=== PATIENT | female | born 1945 | race Caucasian/White ===

== ENCOUNTER 2017-03-17 17:56 | Inpatient (IN) | payer OTHER ==
[~2017-03-17] VITALS: Ht 162.6 cm; Wt 57.1 kg
[~2017-03-17 17:56] MED LIST: ADVAIR HFA 230M12 GM INH; CARDIZEM CD240 MG PO; PRILOSEC 20 MG20 MG PO; TENORMIN25 MG PO
[2017-03-17 17:57] VITALS: BP 167/77
[2017-03-17] MEDS ORDERED: ATENOLOL 50MG T50 M1 PO (20:09)
[2017-03-17 20:10] VITALS: BP 167/77
[2017-03-17] MEDS ORDERED: PROAIR HFA8.5 GM INH (20:10)
[2017-03-17 20:30] VITALS: BP 161/75
[2017-03-17 20:45] VITALS: BP 147/71
[2017-03-18 06:48] LABS: HEMATOCRIT 40.4 % (37.0-47.0); HEMOGLOBIN 13.6 gm/dL (12.0-15.0); MCH 34.9 pg (26.0-34.0); MCHC 33.6 g/dL (28.0-37.0); MCV 103.7 fL (80.0-100.0); RBC 3.89 mil/uL (4.20-5.00); RDW 12.4 % (10.5-14.5); WBC 6.3 thou/uL (4.0-11.0)
[2017-03-18 06:54] LABS: CALCIUM 8.8 mg/dL (8.5-10.1); CREATININE 0.6 mg/dL (0.6-1.0)
[2017-03-18 08:02] VITALS: BP 123/60
[2017-03-18 10:59] VITALS: BP 123/60
[2017-03-18 14:05] LABS: APTT 28.5 Seconds (24.5-32.8); INR 1.1; PROTIME 11.1 Seconds (9.3-11.4)
[2017-03-18 16:07] VITALS: BP 145/71
[2017-03-18 20:05] VITALS: BP 144/72
[2017-03-19 03:22] VITALS: BP 139/79
[2017-03-19 08:00] VITALS: BP 149/73
[2017-03-19 16:00] VITALS: BP 135/66
[2017-03-19 19:45] VITALS: BP 159/76
[2017-03-20 04:03] VITALS: BP 149/66
[2017-03-20 08:36] VITALS: BP 146/69
[2017-03-20] MEDS ORDERED: VALIUM5 MG PO (10:47)
[2017-03-20] MEDS ORDERED: DUONEB 2.5-0.5 M3 ML INH (11:15)
[2017-03-20] MEDS ORDERED: IBUPROFEN 400400 M2 PO (11:16)
== END 2017-03-20 15:25 | DRG 517 ==
LOC: ER 17:56 → EROBS 19:35 → 4N 19:35
PROVIDERS: Nurse Practitioner; Radiology Diagnostic Radiology
DX: M48.56XA Collapsed vertebra, not elsewhere classified, lumbar region, initial encounter for fracture (principal); M81.0 Age-related osteoporosis without current pathological fracture; M19.90 Unspecified osteoarthritis, unspecified site; J45.909 Unspecified asthma, uncomplicated; I10 Essential (primary) hypertension; K21.9 Gastro-esophageal reflux disease without esophagitis; Z82.61 Family history of arthritis; Z82.62 Family history of osteoporosis; Z79.899 Other long term (current) drug therapy
CPT/HCPCS: 10790

== ENCOUNTER → 2017-05-22 | Outpatient (CLI) | payer OTHER ==
[~2017-05-22] MED LIST changes: +ATENOLOL 50MG T50 M1 PO; +DUONEB 2.5-0.5 M3 ML INH; +IBUPROFEN 400400 M2 PO; +PROAIR HFA8.5 GM INH; +VALIUM5 MG PO
== END ==
LOC: RAD 15:17
DX: J18.9 Pneumonia, unspecified organism (principal)

== ENCOUNTER → 2017-05-29 | Outpatient (CLI) | payer OTHER | LOC: NUC 13:03 | DX: M81.0 Age-related osteoporosis without current pathological fracture (principal); Z78.0 Asymptomatic menopausal state ==

== ENCOUNTER 2019-12-28 13:53 | Inpatient (IN) | payer OTHER ==
[~2019-12-28] VITALS: Ht 162.6 cm; Wt 51.9 kg
--- NOTE | ~2019-12-28 | HC ---
[facility] [place] [address] CONSULTATION Name: RAMON RAMACHANDRAN Room #: 450- ADM IN M.R.#: [id number] Admission: 12/28/19 Attend Phys: Nadiya Mccabe Discharge: Date of : 43 Report #: [id number] THIS REPORT FOR: cc: Abisai Gasca,Messi LeyvaM ~ CC: Nadiya Gasca DATE OF SERVICE: 12/30/2019 ADMISSION DIAGNOSIS: Bilateral lower extremity weakness. HISTORY OF PRESENT ILLNESS: The patient is a 74-year-old female who was admitted for bilateral lower extremity weakness x 2 weeks, has progressively worsened. She went to the restroom the other night and her legs gave out causing her to fall to the ground. She normally ambulates with a walker. She also has increased bilateral heel and arch pain, likely due to plantar fasciitis. She has a history of osteoporosis, L5 compression fracture, plantar fasciitis, osteoarthritis, asthma, hypertension, breast cancer status post lumpectomy. She denies dizziness, lightheadedness, chest pain, shortness of breath, fevers, chills, nausea or vomiting. PHYSICAL EXAMINATION: The patient has severe pain with palpation along the plantar fascia aponeurosis bilaterally. The pain extends into the plantar medial calcaneus. Minimal tenderness with compression of the calcaneus bilaterally. The Achilles tendon is intact with minimal tenderness, bilateral. She has ankle equinus with roughly 0 degrees ankle dorsiflexion with her knee straight. She has palpable dorsalis pedis and posterior tibial pulses bilaterally with +1 lower extremity edema. No open lesions or signs of infection. She has a pronated pes planovalgus flat foot type. She has 4/5 strength to her extensor and flexor tendons bilaterally. She can feel light touch to her distal toes bilaterally. IMPRESSION: Plantar fasciitis with gastrocnemius equinus, with pes planovalgus bilateral. PLAN: I recommend physical therapy to include soft tissue mobilization, stretching and strengthening exercises. I did recommend she purchase a Powerstep lugi-hgz-mbalrra foot orthotics that she can place in her athletic shoes. She would benefit from some plantar fascia night splints; however, they would not be covered during her stay in the hospital or rehabilitation center, [address] [address] CONSULTATION Name: RAMON RAMACHANDRAN Room #: 450-P [facility] IN M.R.#: [id number] Admission: 12/28/19 Attend Phys: Nadiya Mccabe Discharge: Date of : 43 Report #: [id number] unless the facility could provide this. I do not recommend steroid injections at this time. By: [id number] Messi Carvajal, VERONICA /nt
--- NOTE | ~2019-12-28 | HC ---
[facility] [place] [address] CONSULTATION Name: RAMON RAMACHANDRAN Room #: 450- ADM IN M.R.#: [id number] Admission: 12/28/19 Attend Phys: Nadiya Mccabe Discharge: Date of : 43 Report #: [id number] THIS REPORT FOR: cc: Abisai Gasca,Kvng Hernandez MD ~ CC: Nadiya Gasca DATE OF SERVICE: 12/29/2019 HISTORY OF PRESENT ILLNESS: The patient is a 74-year-old white female admitted with bilateral lower extremity weakness, legs giving out after a fall. She has weakness more involving the left than the right lower extremity. CT scan showed chronic moderate compression L5 upper level narrowing. She also has complaints of distal lower extremity pain and has a diagnosis of plantar fasciitis. She did not tolerate Neurontin and has now been placed on Lyrica. She is to undergo MRI of the lumbar spine, although she does have a history of some claustrophobia. Note that Spinal Surgery Department also is consulting. PAST MEDICAL HISTORY: Prior medical history includes plantar fasciitis, hypertension, and breast CA. She has had a prior left hip fracture, history of osteoporosis, asthma, hypertension, and GERD. ALLERGIES: NEURONTIN. MEDICATIONS: Please see the full medication listing. SOCIAL HISTORY: She lives in an apartment alone, 5 steps in, groceries are delivered. She utilizes a roller walker, apparently 1 glass of alcohol daily. REVIEW OF SYSTEMS: She did not offer any current complaints of chest pain, shortness of breath or abdominal discomfort. PHYSICAL EXAMINATION: GENERAL: A 74-year-old white female, slender build, in no obvious distress. She is alert. VITAL SIGNS: Last recorded temperature 98, pulse 67, respirations 18, and blood pressure 156/91. HEENT: Appeared to be benign. NEUROLOGIC: Cranial nerves are grossly intact. Facies are symmetric. Functional range of motion of both upper extremities. She does have some decreased range of her shoulders. In her lower extremities, she has some weakness in left hip flexion, I would grade it at a 3+/5. Right lower extremity hip flexion is probably -4 and knee extension is 4-. Bilateral ankle dorsiflexion is 4-. Eversion 4-, appears to have some decreased sensation [address] [address] CONSULTATION Name: MADIERAMONFABIO AKBAR Room #: 450-[facility] IN M.R.#: [id number] Admission: 12/28/19 Attend Phys: Nadiya Mccabe Discharge: Date of : 43 Report #: [id number] toe to proprioception when she notes that her feet feel numb. She was only mildly tender to palpation over the plantar fascia. Tone appeared to be intact. Functionally, she is min assist with toilet transfers and physical therapy and was contact guard 3-4 steps with transfers. ASSESSMENT: A 74-year-old white female with the following problem list: 1. Bilateral lower extremity weakness, noted to have paraparesis. 2. Bilateral decreased distal sensation. She may have a concurrent peripheral neuropathy. She does not have a history of diabetes, however. 3. Acute on chronic plantar fasciitis by history. 4. Compression fracture L5 in the past, status post vertebroplasty. 5. Prior history of a left hip fracture. 6. Asthma. 7. Hypertension. 8. Gastroesophageal reflux. PLAN: MRI of the lumbar spine is ordered. She does have some problems with claustrophobia and we did discuss this. She appears open to some Valium or some medication to help her through that. She certainly may benefit from an acute in-hospital inpatient rehabilitation stay as she further medically stabilizes. At this point, we will be glad to follow along with you regarding her rehab therapy needs. By: 1345 2132 Kvng Rodriguez MD /nt
--- NOTE | ~2019-12-28 | EMS ---
[address] [address] EMS Patient Care Report Name: RAMON RAMACHANDRAN Room #: REG MARANDA Camp#: [id number] Admission: 12/28/19 Attend Phys: Discharge: Date of : 43 Report #: [id number] THIS REPORT FOR: //name// Report Transmitted: 12/28/2019 15:19 EMS Care Summary [facility] MED-ACT Incident [id number] @ 12/28/2019 13:10 Incident Location [address] [place] [address] Patient RAMON RAMACHANDRAN Female, 74 Years 1945 Patient Address [address] [place] [address] Patient History Asthma,Hypertension (HTN), Patient Allergies Gabapentin, Patient Medications Prilosec, Cardizem, Advair, Atenolol, Proair, Chief Complaint "My legs are swollen" Disposition Transported No Lights/[place] Reason Falls Transported To [facility] Narrative Medic 1134 responds code 3 to report of sick patient. 1134 arrives to find one patient lying supine in her bed in a well-kept apartment. Patient reports she [facility] [address] [place] [address] EMS Patient Care Report Name: RAMON RAMACHANDRAN Room #: REG MARANDA Camp#: [id number] Admission: 12/28/19 Attend Phys: Discharge: Date of : 43 Report #: [id number] has experienced increasing edema in her bilateral lower extremity???s over the past two days. Patient denies chest pain shortness of breath, palpitations, or other signs of an acute cardiac event. Patient states that her asthma has been increasingly troublesome over the past several months. Patient states the swelling in her lower extremities has resulted in a loss of mobility, so much so that she experienced a ground-level fall yesterday evening. Patient denies trauma or use of blood thinners. Patient???s betdfi-cs-hbd arrived at her residence this afternoon to check on her, and when she noticed the lack of mobility, she activates EMS response. Patient agrees to assessment and transport, asking that she be transported to [facility]. Patient denies use of diuretics, but does confirm history of hypertension. Patient denies sacral edema. Patient reports she has compression hose which she has been instructed to wear. Patient denies complaint outside of that listed above. Patient treatment and transfer of care are unremarkable. 1134 clears and returns to service. Initial Vitals @13:33P: 78,SC Suspected: false @13:42P: 90,R: 16,BP: 135/91,Pain: 0/10,GCS: 15,SpO2: 94,Revised Trauma: 12, @13:35P: 79,R: 16,BP: 161/84,Pain: 0/10,GCS: 15,SpO2: 95,Revised Trauma: 12, @13:19P: 86,R: 16,BP: 163/82,Pain: 0/10,GCS: 15,SpO2: 95,Revised Trauma: 12, Assessments @13:20MENTAL:No Abnormalities,SKIN:No Abnormalities,HEENT:LUNG SOUNDS:ABDOMEN:PELVIS//GI:EXTREMITIES:Left Leg: Edema,Right Leg: Edema,Left Arm: No Abnormalities,Right Arm: No Abnormalities,PULSE:NEURO: Impression Extremity Pain Procedures @13:3312-Lead ECG Timeline 13:07,Call Received 13:07,Psap Call 13:10,Dispatched 13:11,En Route 13:17,On Scene 13:18,At Patient 13:19,BP: 163/82 M,PULSE: 86,RR: 16 R,SPO2: 95 Ox,ETCO2: ,BG: ,PAIN: 0,GCS: 15, 13:33,12-Lead ECG, 13:33,BP: / M,PULSE: 78,RR: R,SPO2: Ox,ETCO2: ,BG: ,PAIN: ,GCS: , 13:35,BP: 161/84 M,PULSE: 79,RR: 16 R,SPO2: 95 Ox,ETCO2: ,BG: ,PAIN: 0,GCS: 15, 13:35,Depart Scene 13:42,BP: 135/91 M,PULSE: 90,RR: 16 R,SPO2: 94 Ox,ETCO2: ,BG: ,PAIN: 0,GCS: 15, [facility] [address] [place] [address] EMS Patient Care Report Name: RAMON RAMACHANDRAN Room #: REG MARANDA Camp#: [id number] Admission: 12/28/19 Attend Phys: Discharge: Date of : 43 Report #: [id number] 14:03,At Destination 14:06,Call Closed Disclaimer v1.1 Copyright 2020 [employer] This EMS Care Summary contains data elements from the applicable legal record (which may be displayed differently). It is designed to provide pertinent information for the following purposes: continuity of care, clinical quality, and state data reporting. The complete legal record is available to ED staff and administrators of the receiving hospital in [employer]'s Patient Tracker. All data is provided "as is."
[2019-12-28 13:54] VITALS: BP 159/73
[2019-12-28 15:14] LABS: ABSOLUTE NEUTROPHILS 4.9 thou/uL (1.4-8.2); BASOPHILS 1.2 % (0.0-2.0); EOSINOPHILS 3.1 % (0.0-3.0); HEMATOCRIT 43.6 % (37.0-47.0); HEMOGLOBIN 14.8 gm/dL (12.0-15.0); LYMPHOCYTES 16.3 % (24.0-44.0); MCHC 33.9 g/dL (28.0-37.0); MCV 103.1 fL (80.0-100.0); MONOCYTES 9.7 % (1.0-8.0); PLATELET COUNT 315 thou/uL (150-400); POLYS 69.7 % (36.0-66.0); RBC 4.22 mil/uL (4.20-5.00); RDW 12.7 % (10.5-14.5); WBC 7.1 thou/uL (4.0-11.0)
[2019-12-28 15:23] LABS: ANION GAP 10 mmol/L (7-16); BUN 5 mg/dL (7-18); CALCIUM 9.2 mg/dL (8.5-10.1); CHLORIDE 100 mmol/L (98-107); CO2 26 mmol/L (21-32); CREATININE 0.4 mg/dL (0.6-1.0); GLUCOSE 101 mg/dL (74-106); POTASSIUM 4.2 mmol/L (3.5-5.1); SODIUM 136 mmol/L (136-145)
[2019-12-28 15:35] LABS: ALBUMIN 3.2 g/dL (3.4-5.0); SGOT 27 U/L (15-37); SGPT 25 U/L (30-65); TOTAL BILIRUBIN 0.7 mg/dL (0.2-1.0); TOTAL PROTEIN 7.3 g/dL (6.4-8.2); TROPONIN-I <0.06 ng/mL (<0.06)
[2019-12-28 16:37] LABS: URINE BILIRUBIN NEGATIVE (Negative); URINE BLOOD NEGATIVE (Negative); URINE CLARITY CLEAR; URINE COLOR YELLOW; URINE GLUCOSE-RANDOM* NEGATIVE (Negative); URINE KETONES 2+ (Negative); URINE LEUKOCYTES-REFLEX NEGATIVE (Negative); URINE NITRITE-REFLEX NEGATIVE (Negative); URINE PROTEIN (DIPSTICK) NEGATIVE (Negative); URINE UROBILINOGEN 0.2 E.U./dl (0.2-1.0)
[2019-12-28 17:09] VITALS: BP 161/77
--- NOTE | 2019-12-28 20:35 | NUR ---
FIRST ATTEMPT AT REPORT CALLED NOW WITH NO ANSWER
[2019-12-28 20:54] VITALS: BP 154/70
[2019-12-28 21:00] VITALS: BP 152/74
[2019-12-28 21:14] VITALS: BP 168/92
--- NOTE | 2019-12-29 05:54 | NUR ---
VSS-AFEBRILE. ALERT AND ORIENTED X 4, ROOM AIR, NO REPORTED PAIN. PROFOUND WEAKNESS WHEN AMBULATINF, FALL PRECAUTIONS IN PLACE. CALLS APPROPRIATELY FOR ANY NEEDED ASSISTANCE. BM THIS SHIFT.
[2019-12-29 06:25] LABS: CREATININE 0.3 mg/dL (0.6-1.0); POTASSIUM 4.1 mmol/L (3.5-5.1)
[2019-12-29 07:44] VITALS: BP 156/91
--- NOTE | 2019-12-29 08:21 | EKG ---
[facility] [place] [address] ELECTROCARDIOGRAM REPORT Name: MADIERAMON NAOMIE Room #: 450-P ADM IN M.R.#: [id number] Admission: 12/28/19 Attend Phys: Nadiya Mccabe Discharge: Date of : 43 Report #: [id number] THIS REPORT FOR: cc: Abisai Gasca,Chris House MD [facility] THIS REPORT FOR: //name// [facility] ED Test Date: 2019-12-28 Test Time: 14:19:57 Pat Name: RAMON RAMACHANDRAN Department: Room: [facility] Gender: F Supervisor Inspection And Testing: LISSY : 1945 Requested By: Jose Rafael Redman Order Number: [id number] MD: Chris Anderson Measurements Intervals [place]ins Rate: 77 P: 73 CO: 174 QRS: -3 QRSD: 104 T: 28 QT: 387 QTc: 438 Interpretive Statements Sinus rhythm No significant abnormality Compared to ECG 10/08/2015 07:36:23 Sinus tachycardia no longer present ST and T wave abnormality is no longer present Electronically Signed On 12-29-2019 8:21:11 CDT by Chris Anderson [email or web address] <ELECTRONICALLY SIGNED> By: Chris Anderson MD, [facility] 12/29/19 0821 1419 1419 Chris Anderson MD, FAC /EPI
[2019-12-29 09:30] LABS: TSH 3.691 uIU/mL (0.358-3.740)
--- NOTE | 2019-12-29 12:21 | NUR ---
chart review. cm visit with pt at bedside, cm cont to wear own face mask. intro to dcp and transition of care. pt preferrs going by rajesh." i would [facility] to go to [facility] but if they don't have bed i can go to [facility]n"/rajesh. pt lives in apartment alone. " independent" per rajesh. has walker, 5 step to apartment. manage own medication. [facility]hab [facility] at [facility]"/pt. [facility] to be [facility] to [facility], [facility]nd [facility]. pt will need 3 midnights going skilled vs acute rehab.
--- NOTE | 2019-12-29 12:55 | NUR ---
FAXED REFERRAL TO [facility] SPOKE WITH ANDRES IN ADM SHE RECEIVED REFERRAL AND WILL REVIEW. DP TO FOLLOW.
[2019-12-29 13:50] VITALS: BP 155/91
--- NOTE | 2019-12-29 18:04 | NUR ---
Assumed patient care at 0715. Vital signs stable, ABD soft and non-tender, BS x's 4, skin is clean, warm, dry and intact. Patient has complained of "body aches, level two" at 1755. She was given Ibuprofen 400mg po at this time. Patient has Lyrica precsribed BID. She refused her first does, stating "I dont take that." Patient has an IV in Right FA that is saline locked. Patient is alert and oriented x's 4. She transfers with assist of 1-2 from bed to commode (her legs are very weak and shaky). Patient is to have a MRI tomorrow am. Doctor has ordered Valium to be given 30 minutes prior to this procedure, as patient is extremely anxious about this. Will inform on-coming nurse.
[2019-12-29 19:23] VITALS: BP 165/79
--- NOTE | 2019-12-30 01:14 | NUR ---
PT IS A&OX4. BP ELEVATED 165/79, BASELINE FOR THIS PT. THE REST OF HER VITALS ARE STABLE. PT HAS A NEW IV IN THE RIGHT FOREARM (22G). PT DENIES PAIN. PT REFUSED THE LYRICA. PT IS STANDBY TO THE CAMODE. PT IS HAVING LOOSE STOOLS. PT CALLS OUT APPROPRIATELY. WILL CONTINUE TO MONITOR.
[2019-12-30 04:11] VITALS: BP 164/75
[2019-12-30 07:12] VITALS: BP 171/98
--- NOTE | 2019-12-30 08:44 | NUR ---
notified by [facility] that she will not need 3 midnight. pt going for mri today. per 5n they can accept when medical stable for dc. will discuss with rajesh if wants 5n or skilled at [facility].
[2019-12-30 15:55] VITALS: BP 166/86
[2019-12-30 19:24] VITALS: BP 164/80
--- NOTE | 2019-12-30 20:13 | NUR ---
Assumed pt care this am, went down for her MRI in the am. BP elevated in the am resolved after medications were given but went back up late in the pm, informed MD medication given. Diet and medications are well tolerated, POC followed with no signs or vebalizations of distress noted. Endorsed to the night nurse.
[2019-12-30 23:14] VITALS: BP 159/77
--- NOTE | 2019-12-31 01:29 | NUR ---
ASSUMED PT CARE AT 1915. PT IS A&O4. PT HAS A RIGHT ARM IV. PT IS ON ROOM AIR. NO SKIN ISSUES. PT HAS A SMALL SOFT FORMED STOOL. SBA TO THE BS. PT IS CONCERNED ABOUT HER BP. BP IS ELEVATED AND COMES DOWN THE SHIFT GOES ALONG SHOWING THAT THE MEDICATION AND THE DARK QUIET ROOM IS EFFECTIVE. PT DENIES PAIN. PT STATES THAT SHE HAS DISCOMFORT NOT PAIN. THE REST OF THE VITAL SIGNS ARE STABLE. PT IS ASLEEP IN HER ROOM. WILL CONTINUE TO MONITOR.
[2019-12-31 04:24] VITALS: BP 154/85
[2019-12-31 07:17] VITALS: BP 164/78
--- NOTE | 2019-12-31 07:37 | NUR ---
I AGREE WITH ABOVE MEDICINE AIDE NURSING MONITORING AND ASSESSMENT OF THIS PATIENT.
--- NOTE | 2019-12-31 08:34 | NUR ---
cm notified by [facility] acute rehab director that they can accept for rehab. bedside nurse to call report to [phone] [place] [phone].
[2019-12-31] MEDS ORDERED: LYRICA 50 MG50 MG PO (10:03)
[2019-12-31] MEDS ORDERED: AMLODIPINE BESY10 MG PO (10:03)
[2019-12-31] MEDS ORDERED: PREDNISONE 5 MG5 M1 PO (10:04)
--- NOTE | 2019-12-31 11:16 | NUR ---
Received awake on bed. Due medications given as prescribed, able to swallow meds w/o difficulty. On room air. Vital signs stable, with BP elevation- meds given as prescribed. A+Ox4. On MS, not on telemetry; no complaints of chest pain, crushing sensation and heaviness. On heart healthy diet- tolerating well; no nausea, no vomiting and no abdominal pain noted. Continent of bowel and bladder, able to go to the toilet with standby assist, walker and gait belt. Falls bundle in place. With SL at R FA. With swelling and tenderness at L elbow- Dr Mccabe informed and aware. Complained of pain, due PRN pain meds given as prescribed. Assisted in ADLs. For possible transfer to today, a/w physician's orders and CM input. Pt seen and examined by Dr Mccabe- with consult for Neurology- called in consult, a/w physician's rounds. To continue monitoring patient.
[2019-12-31 11:50] VITALS: BP 152/62
[2019-12-31 13:35] VITALS: BP 145/69
== END 2019-12-31 14:50 | DRG 52 ==
LOC: ER 13:53 → 4W 19:22 → EROBS 19:22 → 4W 21:00
PROVIDERS: Nurse Practitioner Family; Physician Assistant; ADMIT Hospitalist; ATTEND Hospitalist
DX: G82.20 Paraplegia, unspecified (principal); M48.56XA Collapsed vertebra, not elsewhere classified, lumbar region, initial encounter for fracture; M72.2 Plantar fascial fibromatosis; M19.90 Unspecified osteoarthritis, unspecified site; J45.909 Unspecified asthma, uncomplicated; I10 Essential (primary) hypertension; M81.0 Age-related osteoporosis without current pathological fracture; K21.9 Gastro-esophageal reflux disease without esophagitis; Z60.2 Problems related to living alone; N39.3 Stress incontinence (female) (male); M62.84 Sarcopenia; D53.9 Nutritional anemia, unspecified; M77.9 Enthesopathy, unspecified; E53.8 Deficiency of other specified B group vitamins; M40.299 Other kyphosis, site unspecified; Z88.8 Allergy status to other drugs, medicaments and biological substances; Z87.891 Personal history of nicotine dependence; Z85.3 Personal history of malignant neoplasm of breast
CPT/HCPCS: 10040; 10045

== ENCOUNTER 2019-12-31 13:00 | Inpatient (IN) | payer OTHER ==
[~2019-12-31] VITALS: Ht 162.6 cm; Wt 52.5 kg
--- NOTE | ~2019-12-31 | H ---
[facility] [place] [address] HISTORY AND PHYSICAL Name: RAMON RAMACHANDRAN Room #: 510-P ADM IN M.R.#: [id number] Admission: 12/31/19 Attend Phys: Kvng Rodriguez MD Discharge: Date of : 43 Report #: [id number] THIS REPORT FOR: cc: Abisai Gasca,Kvng Hernandez MD ~ CC: Kvng Gasca DATE OF SERVICE: 12/31/2019 HISTORY AND PHYSICAL/POSTADMISSION PHYSICIAN EVALUATION HISTORY OF PRESENT ILLNESS: The patient was seen yesterday and was admitted for acute in-hospital inpatient rehabilitation. Please see my prior consult note dictation and see the full history and physical documentation from yesterday. I agree with the documentation as noted. The patient has now been admitted for acute in-hospital inpatient rehabilitation. She was seen by a road driver who recommended soft tissue mobilizations strength and stretching. I also recommended she go ahead and obtain the orthotics that he had recommended. 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 She does not want any surgery. She does have acute on chronic plantar fasciitis. She has had a significant decline from her premorbid functional status and has been admitted for acute in-hospital inpatient rehabilitation. Past medical history, allergies, habits, please see the history and physical. MEDICATIONS: See the MAR. SOCIAL HISTORY: As documented. REVIEW OF SYSTEMS: No current complaints of chest pain, shortness of breath or abdominal discomfort. Please see the full review of systems as is documented. PHYSICAL EXAMINATION: GENERAL: She is a pleasant, slender white female in no obvious distress. She is a 74-year-old. VITAL SIGNS: Temperature 97.7, pulse 77, respirations 18, blood pressure 125/65. Alert, conversant, excellent historian. HEENT: Appeared to be benign. NEUROLOGIC: Cranial nerves are grossly intact. Facies are symmetric. CHEST: Sounded clear to auscultation. CARDIOVASCULAR: Regular rate and rhythm. ABDOMEN: Bowel sounds positive, nontender. GENITOURINARY AND RECTAL: Deferred. EXTREMITIES: She has functional range of motion of both upper extremities with [facility] [address] [place] [address] HISTORY AND PHYSICAL Name: MADIERAMON AKBAR Room #: 510-[facility] IN [facility].#: [id number] Admission: 12/31/19 Attend Phys: Kvng Rodriguez MD Discharge: Date of : 43 Report #: [id number] strength grade 4/5. DTRs are trace to 1. Lower extremities, left lower extremity appears slightly weaker than right lower extremity, probably grade 4-, right lower extremity is more of a grade 4- to 4. She is able to lift both lower extremities antigravity. She has some mild tenderness to palpation over her plantar fascia. Appeared to have some decreased sensation bilateral large toes to proprioception. There is no focal calf swelling. She does need assistance with basic transfers and mobility. She has been at a min assist level, although she was noted to be mod assist coming to stand. ASSESSMENT: A 74-year-old white female with the following problem list: 1. Lumbar radiculopathy with bilateral lower extremity weakness. 2. Decreased sensation in bilateral lower extremities. 3. Possible peripheral neuropathy. 4. L4-L5 kyphosis and ____ listhesis/lateral recess and neural foraminal stenosis, bilateral L5 nerve. 5. Acute on chronic plantar fasciitis. 6. L5 compression fracture with vertebroplasty in the past. 7. Asthma. 8. Hypertension. 9. Gastroesophageal reflux disease. 10. History of a left hip fracture. PLAN: The patient has been admitted for acute in-hospital inpatient rehabilitation. From a postadmission physician evaluation perspective, there are no relevant changes since the preadmission screening. Please see the above review of prior and current medical and functional conditions and comorbidities. Please see the patient's previous and current functional status. As far as risk of complications, she has multiple medical comorbidities as noted above. Initial plan of care involves the interdisciplinary acute inpatient rehabilitation program. Prognosis is reasonably good with estimated length of stay probably at least 5-10 days. Potential barriers would include her multiple medical comorbidities and decreased functional status. The patient meets diagnostic criteria for an acute in-hospital inpatient rehabilitation stay. She meets the medical necessity criteria. She does have the tolerance for therapies and has appropriate discharge goals back to the home setting. By: [id number] Kvng Rodriguez MD /nt
--- NOTE | ~2019-12-31 | PLAN ---
[facility] [place] [address] REHAB UNIT PLAN OF CARE Name: MADIERAMON Room #: 510-P ADM IN M.R.#: [id number] Admission: 12/31/19 Attend Phys: Kvng Rodriguez MD Discharge: Date of : 43 Report #: [id number] THIS REPORT FOR: //name// CC: Kvng Gasca DATE OF SERVICE: 01/03/2020 PROGRESS NOTE AND OVERALL PLAN OF CARE SUBJECTIVE: The patient is seen back in followup. She is in no distress. Last recorded temperature 97.9, pulse 72, respirations 16, blood pressure 126/71. She is pleasant. She appears pleased with current therapy thus far. She has been transferring with contact guard assistance and is ambulating up to 125 feet contact guard with a front-wheeled walker. In occupational therapy, lower body dressing is contact guard, upper body standby assist. ASSESSMENT: 1. Lumbar radiculopathy with bilateral lower extremity weakness. 2. Decreased sensation in bilateral lower extremities. 3. Possible peripheral neuropathy. 4. L4-L5 kyphosis. 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 5. Acute on chronic plantar fasciitis. 6. L5 compression fracture with vertebroplasty in the past. 7. Asthma. 8. Hypertension. 9. Gastroesophageal reflux disease. 10. History of left hip fracture. PLAN: The overall plan of care is based on the preadmission screen, post-admission physician evaluation and information garnered from therapy assessments. 1. Estimated length of stay is probably at least the next 5-10 days. 2. Medical prognosis is reasonably good. 3. Anticipated interventions include the interdisciplinary acute inpatient rehabilitation program. 4. Anticipated functional outcomes would be for the patient to become modified independent with transfers, mobility, and ADLs and to improve as far as her gait and station independence and overall functional mobility. 5. Discharge destination is back to the home setting where she lives in an apartment alone. [address] [address] REHAB UNIT PLAN OF CARE Name: MADIERAMON NAOMIE Room #: 510-P [facility] IN [facility].#: [id number] Admission: 12/31/19 Attend Phys: Kvng Rodriguez MD Discharge: Date of : 43 Report #: [id number] 6. Expected therapy by discipline includes PT and OT 1-1/2 hours per day each 5 days a week throughout the duration of the acute inpatient rehabilitation stay. By: 0931 2209 Kvng Rodriguez MD /nt
[~2019-12-31 13:00] MED LIST changes: +AMLODIPINE BESY10 MG PO; +LYRICA 50 MG50 MG PO; +PREDNISONE 5 MG5 M1 PO
[2019-12-31 19:51] VITALS: BP 126/72
--- NOTE | 2019-12-31 23:30 | NUR ---
PT ASSESSMENT COMPLETED AND VSS. MEDS GIVEN ORDERED AND WELL TOLERATED. FALL PRECAUTIONS IN PLACE. UP TO THE BATHROOM WITH ASST/GAIT/WALKER. PT STATES THAT SHE IS REALLY TIRED TONIGHT AND WANTING A GOOD NIGHT SLEEP. DENIES NEEDS. SLEEPING WELL AT THIS TIME. WILL CONTINUE TO MONITOR FREQUENTLY.
[2020-01-01 05:45] LABS: HEMATOCRIT 40.1 % (37.0-47.0); HEMOGLOBIN 13.8 gm/dL (12.0-15.0); MCH 35.5 pg (26.0-34.0); MCHC 34.4 g/dL (28.0-37.0); MCV 103.2 fL (80.0-100.0); RBC 3.89 mil/uL (4.20-5.00); RDW 12.4 % (10.5-14.5); WBC 5.9 thou/uL (4.0-11.0)
[2020-01-01 05:57] LABS: CREATININE 0.5 mg/dL (0.6-1.0)
[2020-01-01 06:05] LABS: POTASSIUM 2.7 mmol/L (3.5-5.1)
[2020-01-01 06:35] LABS: FOLIC ACID 8.5 ng/mL (8.6-58.9)
[2020-01-01 08:00] VITALS: BP 135/77
--- NOTE | 2020-01-01 14:26 | NUR ---
ASSUMED CARE OF PT AT 0700. PT IS A&OX4 AND VITAL SIGNS ARE STABLE. PT DENIES PAIN AND PARTICIPATED IN THERAPIES. POTASSIUM 2.7 ON AM LABS, NIGHT IVORY CARVER NOTIFIED BY NIGHT NURSE, POTASSIUM ADMINISTERED BY NIGHT NURSE. PT DENIES MUSCLE CRAMPS, INCREASED WEAKNESS, PALPITATIONS, OR SOB. IV STARTED TO RIGHT HAND AND SALINE LOCKED. POTASSIUM REDRAWN AT 1200 AND POTASSIUM WNL. FALL PRECAUTIONS IN PLACE AND NURSING WILL CONTINUE TO MONITOR.
[2020-01-01 19:25] VITALS: BP 127/70
--- NOTE | 2020-01-02 00:12 | NUR ---
PT ALERT AND ORIENTED X 4. AMB TO BR WITH WALKER AND ASSIST X 1 WITHOUT DIFFICULTY. PT DENIES PAIN OR DISCOMFORT. BED ALARM ON FOR SAFETY. PT CHECKED ON HOURLY ROUNDS.
[2020-01-02 08:59] VITALS: BP 118/67
--- NOTE | 2020-01-02 16:21 | NUR ---
PT ALERT ORIENTED X4. SHE IS UP TO BATHROOM WITH STA AND NO C/O PAIN. PLEASANT WITH CARES. WILL CONT WITH PLAN OF CARE.
[2020-01-02 20:05] VITALS: BP 126/71
--- NOTE | 2020-01-03 03:04 | NUR ---
CALLS FOR STANDBY ASSIST TO THE TOILET, STATING THAT SHE WONDERS IF SHE IS GETTING SOMETHING THAT IS MAKING HER GO SO OFTEN. HER PLANTAR FASCITIS MANIFESTS ITSELF HER FEET AND ANKLES BEING BANDED. STEADY GAIT AND PUTS ON HER OWN SHOES.
[2020-01-03 08:00] VITALS: BP 138/74
--- NOTE | 2020-01-03 11:40 | NUR ---
chart review. cm visited with pt, cont with own face mask. unable to visit in room rt no face shield. she reported lives alone in apartment, 5 steps to enter. no stairs inside. has shower chair, 4ww. been to [facility] in the past. manage own medication in past. [facility] [place].
--- NOTE | 2020-01-03 13:24 | NUR ---
ASSUMED CARES AT 0700. PT AWAKE, ALERT AND ORIENTED*4. C/O MILD NABEEL FEET PAIN( PLANTER FASCITIS) AND LEFT ELBOW ORTHOTICS IN PLACE AND VOLTAREN GEL APPLIED TO LEFT ELBOW. PT CONTINUES TO PARTICIPATE WELL WITH THERAPY AND CONTINUES TO PROGRESS TOWARDS DC PLANS. Q1H VISUAL CHECKS. CALL LIGHT WITHIN REACH. FALL PRECAUTIONS IN PLACE
--- NOTE | 2020-01-03 13:27 | NUR ---
Nutrition: Received consult per pt request. Pt admit to rehab unit with lumbar radiculopathy due to lumbar stenosis. PMH: HTN, asthma, osteoporosis. Current BP controlled. Pt requesting to be on regular diet. Overall intake is good and no weight changes recently. RD contacted PROJECT PRODUCT MANAGER who ok'd liberalizing diet to regular. Place pt as low nutrition risk.
--- NOTE | 2020-01-03 16:42 | NUR ---
I have reviewed the documentation by BRAYDEN HERNÁNDEZ from 01/03/2020 to 01/03/20 and I concur with it. RHIANNA GASCA
[2020-01-03 19:42] VITALS: BP 139/82
--- NOTE | 2020-01-04 01:22 | NUR ---
UP TO TOILET WITH WALKER AND STANDBY ASSIST. ABLE TO REMOVE AND PUT ON HER OWN SHOES WHICH HAVE A BRAND NEW ORTHOTIC WHICH MINIMIZES FASCITIS PAIN. PLEASANT
[2020-01-04 05:22] LABS: HEMATOCRIT 39.4 % (37.0-47.0); HEMOGLOBIN 13.4 gm/dL (12.0-15.0); MCH 35.1 pg (26.0-34.0); MCHC 33.9 g/dL (28.0-37.0); MCV 103.6 fL (80.0-100.0); PLATELET COUNT 266 thou/uL (150-400); RBC 3.81 mil/uL (4.20-5.00); WBC 5.6 thou/uL (4.0-11.0)
[2020-01-04 05:47] LABS: CALCIUM 9.1 mg/dL (8.5-10.1); CREATININE 0.5 mg/dL (0.6-1.0); MAGNESIUM 1.8 mg/dL (1.8-2.4); POTASSIUM 3.2 mmol/L (3.5-5.1)
[2020-01-04 08:30] VITALS: BP 140/78
[2020-01-04 09:05] LABS: ABSOLUTE NEUTROPHILS 1.9 thou/uL (1.4-8.2); PLATELET ESTIMATE NORMAL
--- NOTE | 2020-01-04 11:08 | NUR ---
ASSUMED CARE ON 12/31/19 AT 1317. PT WAS BROUGHT IN FROM IN A WC WITH A NURSING PERSONNEL. ALERT AND ORIENTATED, PLESANT AND COOPERATIVE. DENIES ANY PAIN WITH REST AND DOES REPORT DISCOMFORT IN HER FEET WITH STANDING AND DOES NOT TAKE ANYTHING FOR PAIN. DENIES ANY SHORT OF AIR WITH REST. NO OXYGEN. DOES REPORT WEAKNESS IN LE AND HOPING TO GET HER STRENGTH AND ENDURANCE AND DISCHARGE HOME INDEPENDENTLY. SHE HAS A PERIPHERAL IV WHICH IS SALINE LOCKED AND FLUSHES WELL. CONT TO MONITOR AND PT AND OT WILL EVAL AND TREAT PATIENT TOWARDS GOAL. LUNGS CLEAR AND DIMINISHED, BOWEL SOUND PRESENT AND IS CONTINENT. COMPLAINS OF SOME NUMBNESS IN LE OTHERWISE IS COMFORTABLE AND CALL LIGHT WITHIN REACH.
--- NOTE | 2020-01-04 12:47 | NUR ---
team, recommendation: dc 01/07/2020 [facility] ( pt, ot, nurse ). no dme needed. possible going mod i in room with walker on 01/06/2020.
--- NOTE | 2020-01-04 16:06 | NUR ---
I have reviewed the documentation by BRAYDEN HERNÁNDEZ from 01/04/20 to 01/04/20 and I concur with it. RHIANNA GASCA, PT, DPT
--- NOTE | 2020-01-04 16:48 | NUR ---
FAXED REFERRAL TO [facility] SPOKE WITH HINA IN INTAKE THEY RECEIVED REFERRAL AND WILL ACCEPT AT DC ANTICIPATE DC 01/06.
[2020-01-04 16:49] VITALS: BP 140/78
--- NOTE | 2020-01-04 17:00 | NUR ---
VAT INFORMED RN THAT PT WILL HAVE TO HAVE PICC PLACED 01/05/20 THE HOSPITAL IS OUT OF SLPICC KITS BUT WILL HAVE MORE TOMORROW. RN CONFIRMED HIS PIV IS STILL IN PLACE AND IS NOT DC'ING HOME TODAY.
[2020-01-04 19:04] VITALS: BP 144/71
--- NOTE | 2020-01-04 19:15 | NUR ---
ASSUMED CARE OF PT AT 0700. ALERT AND ORIENTED TIMES FOUR. VSS PT DENIES PAIN/SOA. PT UP FOR MOST OF THE SHIFT WORKS WELL WITH PT/OT. PT PROGRESSING TOWARDS POC GOALS.
--- NOTE | 2020-01-05 01:02 | NUR ---
PT ALERT AND ORIENTED X 4. AMB TO BR WITH WALKER AND ASSIST X 1. PT DENIES PAIN OR DISCOMFORT. BED ALARM ON FOR SAFETY. PT CHECKED ON HOURLY ROUNDS.
[2020-01-05 08:00] VITALS: BP 132/68
--- NOTE | 2020-01-05 16:59 | NUR ---
I have reviewed the documentation by BRAYDEN HERNÁNDEZ from 01/05/20 to 01/05/20 and I concur with it. RHIANNA GASCA, PT, DPT
[2020-01-05 19:51] VITALS: BP 128/57
--- NOTE | 2020-01-05 20:01 | NUR ---
PT ASSESSED AT START OF SHIFT. PROGRESSING WELL. NO C/O PAIN. WORKING ON THERAPY. HOME SOON.
--- NOTE | 2020-01-06 00:03 | NUR ---
PT ALERT AND ORIENTED X 4. MODIFIED INDEPENDENT IN ROOM WITH WALKER. PT DENIES PAIN OR DISCOMFORT. PT APPEARS TO BE SLEEPING ON HOURLY ROUNDS.
[2020-01-06 05:32] LABS: CALCIUM 9.3 mg/dL (8.5-10.1); CREATININE 0.6 mg/dL (0.6-1.0); MAGNESIUM 2.2 mg/dL (1.8-2.4); POTASSIUM 3.8 mmol/L (3.5-5.1)
[2020-01-06 08:00] VITALS: BP 154/75
--- NOTE | 2020-01-06 08:40 | NUR ---
cm received phone call from sister camila returning cm call from after team. cm education on team recommendation for 01/07/20. camila agrees with dcp.
--- NOTE | 2020-01-06 11:14 | NUR ---
ASSUMED CARE AT 0700. PT IS ALERT AND ORIENTATED AND VERY PLEASANT. SHE IS MOD I AND IS AMBULATING IN THE ROOM WITH HER WALKER INDEPENDENTLY. DENIES ANY PAIN, SLIGHT DISCOMFORT IN HER FEET AND IS IMPROVING WITH ACTIVITY AND THERAPY. DOES NOT REQUIRE ANY MEDICATION. LUNGS CLEAR, BS ACTIVE WITH A BOWL MOVEMENT ON 01/06/2020. APPETITE GOOD, DENIES ANY NAUSEA OR VOMITTING. PLAN FOR DISCHARGE HOME TOMORROW. PROGRESSING TOWARDS GOAL. CONT TO MONITOR.
[2020-01-06 20:24] VITALS: BP 161/87
[2020-01-06 20:30] VITALS: BP 154/81
[2020-01-06] MEDS ORDERED: VITAMIN B-12500 MCG PO (22:28)
[2020-01-06] MEDS ORDERED: FOLIC ACID0.4 MG PO (22:28)
[2020-01-06] MEDS ORDERED: PREDNISONE 5 MG5 M1 PO (22:28)
--- NOTE | 2020-01-07 03:33 | NUR ---
assumed care approx 1900 evening 01/05. pt sitting up in bed at change of shift happy and in good mood stating she was looking forward to being discharged. pt denied complaints. pt with no hs meds to take. pt modified independent in room tolerating well. pt appears to be sleeping soundly. call light in reach. will continue to monitor.
[2020-01-07 07:33] VITALS: BP 146/87
[2020-01-07 10:46] VITALS: BP 140/78
[2020-01-07 10:49] VITALS: BP 140/78
--- NOTE | 2020-01-07 10:51 | NUR ---
faxed dc orders and sum to [facility] location [phone] with a return confirmation received. sister will transport her home.
--- NOTE | 2020-01-07 13:04 | NUR ---
ASSUMED CARE OF PT AT 0700. PT IS A&OX4 AND VITAL SIGNS ARE STABLE. PT DENIES PAIN. PLANS TO DISCAHRGE TODAY. DISCHARGE MEDICATIONS, F/U APPOINTMENTS, INSTRUCTIONS, AND EDUCATION REVIEWED WITH PT. PT DENIES QUESTIONS AT THIS TIME. PT BELONGINGS REMOVED BY PT AT TIME OF DISCHARGE. DISCHARGE PACKET WITH PT AT DISCAHRGE. PT ASSISTED TO HOSPTAL ENTRANCE AT TIME OF DISCHARGE BY NURSING STAFF.
--- NOTE | 2020-01-08 16:55 | HC ---
[facility] [place] [address] CONSULTATION Name: MADIERAMON Room #: 501-A [facility] IN .R.#: [id number] Admission: 12/31/19 Attend Phys: Kvng Rodriguez MD Discharge: 01/07/20 Date of : 41 Report #: [id number] THIS REPORT FOR: cc: Abisai Gasca,Abisai Hale,Mian Hines. PhD ~ CC: Kvng Gasca DATE OF SERVICE: 01/02/2020 BEHAVIORAL STATUS EXAM AGE: 74. ATTENDING PHYSICIAN: Kvng Rodriguez MD SHOT BLASTER: Mian Jones, PhD CLINICAL PRESENTATION: The patient is a 74-year-old female admitted to the rehabilitation unit for a comprehensive inpatient rehabilitation program. She has a presenting condition of acute on chronic plantar fasciitis. She experienced a decline in her premorbid functional status and was admitted for additional rehabilitation. Her assessment on admission to the rehab unit included lumbar radiculopathy with bilateral lower extremity weakness, decreased sensation in bilateral lower extremities, possible peripheral neuropathy, L4-L5 kyphosis, acute on chronic plantar fasciitis, L5 compression fracture with vertebroplasty in the past, asthma, hypertension, gastroesophageal reflux disease, and a history of left hip fracture. A complete description of her medical condition and history can be found in her medical record. Neuropsychological consultation was requested to provide assistance in the assessment of cognitive and emotional status and provide recommendations and services. Prior to this most recent admission, the patient was living independently in her own home. Her about 4 years ago. She had 2 children. Her son in summer from suicide. She is estranged from her daughter for the last 5 years. The patient is a high school graduate. 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 She reports having been independent with instrumental activities of daily living. However, she discontinued driving in 2015 following a hip fracture. TECHNIQUES UTILIZED: Clinical interview, review of medical records, staff consultation and behavioral observation, mini mental status exam 2 standard version, clock drawing and letter fluency assessment. [facility] [address] [place] [address] CONSULTATION Name: RAMON RAMACHANDRAN Room #: 501-A [facility].#: [id number] Admission: 12/31/19 Attend Phys: Kvng Rodriguez MD Discharge: 01/07/20 Date of : 41 Report #: [id number] EXAMINATION FINDINGS: The patient was alert and cooperative with the assessment. She accurately described events surrounding her admission. There is no evidence of aphasia. Her thoughts are logical and goal oriented. There is no evidence of thought disorder. She does not report auditory or visual hallucinations or suicidal ideation. She describes her symptoms to include difficulty with sleep secondary to a bed alarm awakening her here in the hospital. Anxiety is variable and was high this week because of uncertainty regarding her medical condition. There is no report of depression, word finding deficits or memory issues. Performance on the MMSE 2 brief version was 13 of 16. She was 3/3 for initial registration, 5/5 for orientation at time, 3/[address] and 2/3 for immediate recall of 3 items after a brief time delay and distraction. Performance on the MMSE 2 standard version was 22 of 30, which is a T score 31 and percentile rank of 3. She was 1/5 for serial 7s, 2/2 for naming, 1/1 for repetition, 3/3 for comprehension. She could read and follow a single command and write a sentence. However, she had difficulty with copying a simple geometric design. Clock drawing was within normal limits. Letter fluency was in the low average range with a T score of 40, percentile rank of 16. Category fluency was at low average with a T score 38 and percentile rank at 12. Overall, total fluency was a T score 37 and percentile rank of 10. The patient is presenting with some subtle difficulty in sustained concentration and aspects of executive functioning including verbal fluency. DIAGNOSTIC IMPRESSION: Mild neurocognitive disorder, unspecified, without behavior disorder. Unspecified anxiety disorder. RECOMMENDATIONS: The patient will benefit from assistance with strategies for managing anxiety that include relaxation techniques. Further assessment of executive functioning following her recovery to assist in the development of compensatory strategies for practical planning and problem solving. Improved management of anxiety is likely to have an influenc e over her cognition. Thank you very much for allowing me to provide the consultation on this patient. <ELECTRONICALLY SIGNED> By: Mian Jones, PhD 01/08/20 [id number] Mian Jones, PhD /nt
== END 2020-01-07 13:14 | disposition home health service (06) | DRG 552 ==
PROVIDERS: Nurse Practitioner; Nurse Practitioner Family; ADMIT Physical Medicine & Rehabilitation; ATTEND Physical Medicine & Rehabilitation
DX: M54.16 Radiculopathy, lumbar region (principal); M48.56XA Collapsed vertebra, not elsewhere classified, lumbar region, initial encounter for fracture; E87.0 Hyperosmolality and hypernatremia; I10 Essential (primary) hypertension; K21.9 Gastro-esophageal reflux disease without esophagitis; G31.84 Mild cognitive impairment of uncertain or unknown etiology; F41.9 Anxiety disorder, unspecified; M81.0 Age-related osteoporosis without current pathological fracture; M19.90 Unspecified osteoarthritis, unspecified site; J45.909 Unspecified asthma, uncomplicated; M72.2 Plantar fascial fibromatosis; M40.299 Other kyphosis, site unspecified; M48.061 Spinal stenosis, lumbar region without neurogenic claudication; G62.9 Polyneuropathy, unspecified; E87.6 Hypokalemia; G89.29 Other chronic pain; E83.42 Hypomagnesemia; M54.9 Dorsalgia, unspecified; Z87.81 Personal history of (healed) traumatic fracture; Z88.8 Allergy status to other drugs, medicaments and biological substances; R53.1 Weakness
CPT/HCPCS: 10112

== ENCOUNTER 2020-01-15 17:10 | Inpatient (IN) | payer OTHER ==
[~2020-01-15] VITALS: Ht 162.6 cm; Wt 55.2 kg
--- NOTE | ~2020-01-15 | EMS ---
[address] [address] EMS Patient Care Report Name: RAMON HENRIQUEZ Room #: REG MARANDA Camp#: [id number] Admission: 01/15/20 Attend Phys: Discharge: Date of : 41 Report #: [id number] THIS REPORT FOR: //name// Report Transmitted: 01/15/2020 18:55 EMS Care Summary [facility] MED-ACT Incident [id number] @ 01/15/2020 16:24 Incident Location [address] [place] [address] Patient RAMON HENRIQUEZ Female, 75 Years 1944-08-21 Patient Address [address] [place] [address] Patient History Hypertension (HTN),Back Pain (Chronic),Back Surgery, Patient Allergies Gabapentin, Patient Medications Vitamin B12, Omeprazole, Vitamin D, Atenolol, Diltiazem, Chief Complaint Bright red blood in toilet bowl Disposition Transported No Lights/[place] Reason Hemorrhage/Laceration Transported To [facility] Narrative CHIEF COMPLAINT: Bright red blood in toilet bowl. [address] [address] EMS Patient Care Report Name: RAMON HENRIQUEZ Room #: REG [facility].#: [id number] Admission: 01/15/20 Attend Phys: Discharge: Date of : 41 Report #: [id number] H.P.I.: Ramon Henriquez, a 74 y.o.f., stated she observed the above after feeling as if she needed to pass gas while seated on the toilet. She denied any abdominal pain, no nausea, and hadn't been ill recently. She said this hadn't happened before. The incident occurred about 1 hour before she called for an ambulance. UPON ARRIVAL: Mrs. Henriquez was seated on a couch. She was awake and in no distress. CFD2 E-23 was on scene and evaluating her. TREATMENT: None rendered/ required. DISPOSITION: Mrs. Henriquez was assisted onto our stair chair, then taken to the stretcher. We assisted her onto the stretcher, and secured in the usual manner. Transport was non-emergent to [facility] e.d. as per her choice. No incidents/ changes en route. Info-only radio report by pm business management intern. We were directed to rm 4. Mrs. Henriquez was able to move herself to the hospital bed. Adamaris Rojas R.N., received the report. Initial Vitals @PTAP: 77,BP: 162/80,Pain: 0/10,GCS: 15,SpO2: 94, @16:51P: 75,R: 16,BP: 170/80,Pain: 0/10,GCS: 15,Temp: 96.8F,SpO2: 96,Revised Trauma: 12, @16:59P: 70,R: 20,BP: 171/73,Pain: 0/10,GCS: 15,SpO2: 97,Revised Trauma: 12, Assessments @16:58MENTAL:Person Oriented,Time Oriented,Place Oriented,Event Oriented,SKIN:HEENT:Head/Face: No Abnormalities,Neck/Airway: No Abnormalities,LUNG SOUNDS:ABDOMEN:PELVIS//GI:EXTREMITIES:PULSE:NEURO:Abnormal Gait, Impression Hemorrhage Timeline [employer] ARCHITECT,BP: 162/80 M,PULSE: 77,RR: R,SPO2: 94 Ox,ETCO2: ,BG: ,PAIN: 0,GCS: 15, 16:23,Call Received 16:23,Psap Call 16:24,Dispatched 16:25,En Route 16:34,On Scene 16:36,At Patient [address] [address] EMS Patient Care Report Name: RAMON HENRIQUEZ Room #: REG Zoë#: [id number] Admission: 01/15/20 Attend Phys: Discharge: Date of : 41 Report #: [id number] 16:50,Depart Scene 16:51,BP: 170/80 M,PULSE: 75,RR: 16 R,SPO2: 96 Ox,ETCO2: ,BG: ,PAIN: 0,GCS: 15, 16:59,BP: 171/73 M,PULSE: 70,RR: 20 R,SPO2: 97 Ox,ETCO2: ,BG: ,PAIN: 0,GCS: 15, 17:03,At Destination 17:16,Call Closed Disclaimer v1.1 Copyright 2020 [employer] This EMS Care Summary contains data elements from the applicable legal record (which may be displayed differently). It is designed to provide pertinent information for the following purposes: continuity of care, clinical quality, and state data reporting. The complete legal record is available to ED staff and administrators of the receiving hospital in [facility]'s Patient Tracker. All data is provided "as is."
[~2020-01-15 17:10] MED LIST changes: +FOLIC ACID0.4 MG PO; +VITAMIN B-12500 MCG PO
[2020-01-15 17:12] VITALS: BP 157/79
[2020-01-15] MEDS ORDERED: PROAIR HFA8.5 GM INH (17:44)
[2020-01-15] MEDS ORDERED: FLUTICASONE PRO16 GM NARES (17:45)
[2020-01-15] MEDS ORDERED: D3-200050 MCG PO (17:45)
[2020-01-15 17:55] LABS: ABSOLUTE NEUTROPHILS 5.9 thou/uL (1.4-8.2); BASOPHILS 0.2 % (0.0-2.0); EOSINOPHILS 4.2 % (0.0-3.0); HEMOGLOBIN 14.1 gm/dL (12.0-15.0); LYMPHOCYTES 16.7 % (24.0-44.0); MCH 34.9 pg (26.0-34.0); MCHC 34.4 g/dL (28.0-37.0); MCV 101.4 fL (80.0-100.0); PLATELET COUNT 373 thou/uL (150-400); POLYS 69.9 % (36.0-66.0); RBC 4.05 mil/uL (4.20-5.00); RDW 12.3 % (10.5-14.5); WBC 8.5 thou/uL (4.0-11.0)
[2020-01-15 18:02] LABS: CALCIUM 9.1 mg/dL (8.5-10.1); CREATININE 0.6 mg/dL (0.6-1.0); POTASSIUM 4.2 mmol/L (3.5-5.1)
--- NOTE | 2020-01-15 18:07 | NUR ---
tried to call camila
[2020-01-15 18:08] LABS: APTT 28.2 Seconds (24.5-32.8); PROTIME 10.1 Seconds (9.3-11.4)
[2020-01-15 18:09] LABS: ALBUMIN 3.5 g/dL (3.4-5.0); DIRECT BILIRUBIN 0.2 mg/dL (<0.1-0.2); TOTAL BILIRUBIN 0.4 mg/dL (0.2-1.0); TOTAL PROTEIN 7.4 g/dL (6.4-8.2)
--- NOTE | 2020-01-15 18:17 | NUR ---
CALLED MARLENE (BROTHER IN LAW) AND WAS ABLE TO REACH JOSE CARLOS, SHE IS ON HER WAY
[2020-01-15 20:40] VITALS: BP 157/79
--- NOTE | 2020-01-15 20:46 | NUR ---
Attempted to call report to nurse on . Nurse unable to take report and will call back
[2020-01-15 21:12] VITALS: BP 147/70
[2020-01-15 22:31] VITALS: BP 154/73
--- NOTE | 2020-01-16 03:21 | NUR ---
PT ARRIVED FROM ER THIS SHIFT A&OX4. ADMISSION DONE AND PT ORIENTED TO THE UNIT. NO BLOODY STOOL NOTED THIS SHIFT PER REPORT PT HAD 2 DARK BLOODY STOOLS WITH CLOTS DOWN IN THE ER. IV INTACT AND FLUIDS INFUSING. PT UP WITH ASSIST TO THE BSC. FALL PREC IN PLACE. PT NPO AT MIDNIGHT WILL CONT WITH POC TILL EOS.
[2020-01-16 05:50] LABS: HEMOGLOBIN 12.2 gm/dL (12.0-15.0); MCH 34.6 pg (26.0-34.0); MCHC 33.9 g/dL (28.0-37.0); RBC 3.53 mil/uL (4.20-5.00); WBC 5.8 thou/uL (4.0-11.0)
[2020-01-16 06:11] LABS: ALBUMIN 2.7 g/dL (3.4-5.0); CALCIUM 8.5 mg/dL (8.5-10.1); CREATININE 0.6 mg/dL (0.6-1.0); POTASSIUM 3.5 mmol/L (3.5-5.1); TOTAL BILIRUBIN 0.5 mg/dL (0.2-1.0); TOTAL PROTEIN 5.8 g/dL (6.4-8.2)
[2020-01-16 16:25] VITALS: BP 108/76; BP 156/81
[2020-01-16 20:15] VITALS: BP 152/75
--- NOTE | 2020-01-16 20:20 | NUR ---
Assumed care of pt. at 0700. Pt. is very pleasant, calm, and cooperative. Pt. is concerned about labs and blood pressure. She is running higher than she usually does. Pt. teaching on disease process and meaning of general lab values explained. Pt. IV clotted off and was replaced by IV team. Fall percautions in place.
--- NOTE | 2020-01-17 04:11 | NUR ---
PATIENT ALERT AND ORIENTED X4. UP TO BSC SEVERAL TIMES DUE TO PREP FOR EGD AND COLONOSCOPY TODAY. OUTPUT IS LIGHT BROWN AFTER GO-LYTELY. IVF INFUSING W/O COMPLICATION. PLEASANT AND COOPERATIVE. RESTING QUIETLY. NPO OF 01/16/20 AT 2359. WILL MONITOR.
[2020-01-17 05:48] LABS: HEMATOCRIT 34.3 % (37.0-47.0); HEMOGLOBIN 11.9 gm/dL (12.0-15.0); MCH 35.5 pg (26.0-34.0); MCHC 34.7 g/dL (28.0-37.0); MCV 102.2 fL (80.0-100.0); RBC 3.35 mil/uL (4.20-5.00); RDW 12.2 % (10.5-14.5); WBC 5.2 thou/uL (4.0-11.0)
[2020-01-17 06:01] LABS: CALCIUM 8.5 mg/dL (8.5-10.1); CREATININE 0.4 mg/dL (0.6-1.0); POTASSIUM 3.2 mmol/L (3.5-5.1)
[2020-01-17 07:25] VITALS: BP 164/76
[2020-01-17 12:00] VITALS: BP 148/80
--- NOTE | 2020-01-17 14:45 | NUR ---
INITIAL ASSESSMENT: Received consult. JESSICA reviewed chart and spoke with nursing and attending physician. Pt was admitted from home due to GI bleed. Pt had EGD/colonoscopy this morning. Discharge home is anticipated for tomorrow. Pt was recently on 5N and discharged home on 01/06 with [facility]. JESSICA met with pt at bedside. Introduced role of SW. Pt is alert/orientated x 4. Pt reports she lives at home alone in an apt. Pt has a cane and walker. Pt is currently on servic with [facility] and would like to resume services upon discharge. Pt's PCP is Dr. Gasca. Pt states she will have transportation home when discharged. SW faxed HH referral/COVID test results to [place] [place] and notified liaison of referral. Pt requests start of care be Fri. 01/22 or 01/23. Contact info for HH placed in pt's discharge summary. JESSICA is following to assist as needed with discharge planning.
[2020-01-17 14:49] VITALS: BP 164/76
[2020-01-17 16:35] VITALS: BP 133/62
[2020-01-17 19:00] VITALS: BP 129/67
--- NOTE | 2020-01-17 19:24 | NUR ---
PT IS AOX4, VSS, NO C/O PAIN AT THIS TIME. PT DENIES N/V, CALLS APPROPRIATELY. FALL PRECAUTIONS IN PLACE. WILL CONTINUE TO MONITOR.
--- NOTE | 2020-01-18 02:05 | NUR ---
ASSUMED CARE OF PT AT 1900.PT DENIED PAIN SO FAR.PT STILL NEED STOOL SAMPLE,NO BM YET.UP WITH SBA TO THE BSC.PT PLEASANT AND COPERATIVE WITH CARE.PT RESTING COMFORTABLY ON HER BED.CALL LIGHT WITHIN REACH.
[2020-01-18 04:06] VITALS: BP 127/61
[2020-01-18 07:51] LABS: HEMATOCRIT 34.7 % (37.0-47.0); HEMOGLOBIN 12.1 gm/dL (12.0-15.0); MCH 35.4 pg (26.0-34.0); MCHC 34.8 g/dL (28.0-37.0); MCV 101.9 fL (80.0-100.0); RBC 3.41 mil/uL (4.20-5.00); RDW 12.1 % (10.5-14.5); WBC 5.5 thou/uL (4.0-11.0)
[2020-01-18 08:05] LABS: CALCIUM 8.8 mg/dL (8.5-10.1); CREATININE 0.4 mg/dL (0.6-1.0); POTASSIUM 3.8 mmol/L (3.5-5.1)
[2020-01-18 11:04] VITALS: BP 164/76
--- NOTE | 2020-01-18 11:38 | NUR ---
PT ASSESSED AT START OF SHIFT. FEEING GOOD TODAY. NO FURTHER BLEEDING. GI WILL CALL PT W/ PATHOLOGY REPORT FROM EGD. PT TO DISCHARGE HOME TODAY.
[2020-01-18 14:16] VITALS: BP 164/76
[2020-01-18 14:24] VITALS: BP 164/76
--- NOTE | 2020-01-18 16:51 | NUR ---
PT DISCHARGING TODAY TO HOME WITH HH FAXED DC ORDERS/SUMMARY TO [facility] SPOKE WITH INTAKE THEY RECEIVED ORDERS AND WILL RESUME CARE.
--- NOTE | 2020-01-18 17:07 | PATH ---
[facility] [place] [address] PATHOLOGY RPT PROCEDURE Name: RAMON HENRIQUEZ Room #: 442-P DIS IN M.R.#: [id number] Admission: 01/15/20 Date of : 41 Discharge: 01/18/20 Report #: [id number] Path Case #: [id number] [facility] Accession Number: [id number] . 01 Material submitted: . PART A: stomach - BX OF GASTRITIS PART B: stomach - POLYP AT GASTRIC PART C: rectum - POLYP AT RECTUM . 01 Clinical history: . GI BLEED A. R/O H PYLORI . 02 Diagnosis: A. Gastric mucosa, gastritis, endoscopic biopsy: - Moderate reactive gastropathy with intestinal metaplasia in one fragment. - Negative for atrophy or dysplasia. - Negative for Helicobacter pylori (properly-controlled immunohistochemical stain performed). . B. Polyp, at gastric, endoscopic biopsy: - Hyperplastic polyp. - Negative for dysplasia. . C. Polyp, at rectum, endoscopic biopsy: - Hyperplastic polyp. - Negative for dysplasia. . (IUV:mml; 01/18/2020) QL 01/18/2020 1538 Local . 02 Electronically signed: . Kamryn Gilmore MD, Pathologist NPI- [id number] . 01 Gross description: . A. The specimen is received in formalin, labeled "Ramon Henriquez, biopsy of gastritis, R/O H. pylori". Received are multiple segments of pale magana soft tissue ranging in size from 0.2 to 0.5 cm in maximum dimensions. The specimen is submitted entirely in cassette A1. . B. The specimen is received in formalin, labeled "Ramon Henriquez, polyp at gastric". Received is a segment of pale magana soft tissue measuring 1.0 x 0.6 x 0.5 cm in maximum dimensions. The surgical margin is inked and the segment is bisected. The specimen is submitted entirely in cassette B1. . [address] [address] PATHOLOGY RPT PROCEDURE Name: RAMON HENRIQUEZ Room #: 442-P DIS IN M.R.#: [id number] Admission: 01/15/20 Date of : 41 Discharge: 01/18/20 Report #: [id number] Path Case #: [id number] C. The specimen is received in formalin, labeled "Ramon Henriquez, polyp at rectum". Received is a segment of pale magana soft tissue measuring 0.5 cm in maximum dimensions. The specimen is submitted entirely in cassette C1. (CAA; 01/17/2020) QAC/QAC 01/17/2020 1714 Local . 02 Pathologist provided ICD-10: K31.9, K31.7, K62.1 . 02 CPT . 214103, 611123, 300982, [id number] Specimen Comment: A courtesy copy of this report has been sent to [phone] Specimen Comment: [id number], Specimen Comment: Report sent to ,DR ZAMARRIPA / DR FORBES Performed at: [address], [place] [id number] MD Demarco Victoria MD Phone: [phone] Performed at: [address] [id number] MD Kamryn Gilmore MD Phone: [phone]
== END 2020-01-18 16:12 | disposition home health service (06) | DRG 377 ==
LOC: ER 17:10 → 4S 19:34 → EROBS 19:34 → 4S 21:31
PROVIDERS: Nurse Practitioner; ADMIT Hospitalist; ATTEND Hospitalist
DX: K29.61 Other gastritis with bleeding (principal); E43 Unspecified severe protein-calorie malnutrition; K57.31 Diverticulosis of large intestine without perforation or abscess with bleeding; M81.0 Age-related osteoporosis without current pathological fracture; M19.90 Unspecified osteoarthritis, unspecified site; J45.909 Unspecified asthma, uncomplicated; M72.2 Plantar fascial fibromatosis; I10 Essential (primary) hypertension; K21.9 Gastro-esophageal reflux disease without esophagitis; K44.9 Diaphragmatic hernia without obstruction or gangrene; K31.7 Polyp of stomach and duodenum; Z87.81 Personal history of (healed) traumatic fracture; Z88.8 Allergy status to other drugs, medicaments and biological substances; Z87.891 Personal history of nicotine dependence; Z85.3 Personal history of malignant neoplasm of breast; Z20.828 Contact with and (suspected) exposure to other viral communicable diseases
CPT/HCPCS: 10102; 62110; 62900; 70005

== ENCOUNTER 2020-10-14 09:04 | Emergency (ER) | payer OTHER ==
[~2020-10-14] VITALS: Ht 162.6 cm; Wt 52.2 kg
--- NOTE | ~2020-10-14 | EMS ---
[address] [address] EMS Patient Care Report Name: RAMON RAMACHANDRAN Room #: REG MARANDA Camp#: [id number] Admission: 10/14/20 Attend Phys: Discharge: Date of : 41 Report #: [id number] THIS REPORT FOR: //name// Report Transmitted: 10/14/2020 09:16 EMS Care Summary [facility] MED-ACT Incident [id number] @ 10/14/2020 08:34 Incident Location [address] [place] [address] Patient RAMON RAMACHANDRAN Female, 75 Years 1945 Patient Address [address] [place] [address] Patient History Other,Asthma,Hypertension (HTN),Breast Cancer,Gastrointesinal Hemorrhage, Patient Allergies Lyrica,Gabapentin, Patient Medications Prilosec, Atenolol, Cardizem, Proair, Advair, Chief Complaint Knee pain Disposition Transported No Lights/[place] Dispatch Reason Sick Person Transported To [facility] Narrative Dispatched to an apartment for a sick person. Upon arrival pt found lying supine in bed c/o knee pain. [facility] [address] [place] [address] EMS Patient Care Report Name: RAMON RAMACHANDRAN Room #: RADU Camp#: [id number] Admission: 10/14/20 Attend Phys: Discharge: Date of : 41 Report #: [id number] HPI; Pt states she was walking in bed room and stubbed her toe on object but did not fall. Pt then attempted to walk back to bed and she states her knees "gave out". Pt did fall onto carpeted floor. Pt denies loss of consciousness or striking her head. Pt's family helped back into bed. Today pt is unable to get up or stand due to pain in her knees. Pt normally uses a walker to get around. PRIMARY; Alert, spontaneously breathing with a strong radial pulse. SECONDARY; EXTREMITIES; Pain to both knees. Neg swelling or deformity found on exam. Pt is able to flex knee's slightly but pain increases with movement. Swelling and ecchymosis noted to right great toe. Neg deformity. IMPRESSION; Knee pain of unknown etiology. TREATMENT; Pt placed on stair chair and extricated from apartment building. Pt secured on cot with all straps. TRANSPORT; Pt transported without change and released to ED staff in room 9. Initial Vitals @08:53P: 78,BP: 176/99,SpO2: 96, @08:41P: 85,R: 12,BP: 190/91,Pain: 6/10,GCS: 15,Temp: 97.7F,SpO2: 96,Revised Trauma: 12, Assessments @08:41MENTAL:No Abnormalities,SKIN:No Abnormalities,HEENT:Head/Face: No Abnormalities,Eyes: No Abnormalities,Neck/Airway: No Abnormalities,LUNG SOUNDS:General: No Abnormalities,Left Upper: No Abnormalities,Right Upper: No Abnormalities,Left Lower: No Abnormalities,Right Lower: No Abnormalities,ABDOMEN:General: No Abnormalities,Left Upper: No Abnormalities,Right Upper: No Abnormalities,Left Lower: No Abnormalities,Right Lower: No Abnormalities,PELVIS//GI:No Abnormalities,EXTREMITIES:Right Leg: ECC,Right Leg: TANMAY,Left Leg: DOUGLAS,Left Leg: DOUGLAS,Right Leg: DOUGLAS,Right Leg: DOUGLAS,Right Leg: DOUGLAS,PULSE:NEURO:No Abnormalities, Impression Acute Pain, not elsewhere classified Procedures @09:00Surgical Mask on PatientResponse: Unchanged Timeline 08:33,Call Received 08:33,Psap Call [facility] [address] [place] [address] EMS Patient Care Report Name: RAMON RAMACHANDRAN Room #: REG Zoë#: [id number] Admission: 10/14/20 Attend Phys: Discharge: Date of : 41 Report #: [id number] 08:34,Dispatched 08:35,En Route 08:38,On Scene 08:40,At Patient 08:41,BP: 190/91 M,PULSE: 85,RR: 12 R,SPO2: 96 Ox,ETCO2: ,BG: ,PAIN: 6,GCS: 15, 08:51,Depart Scene 08:53,BP: 176/99 M,PULSE: 78,RR: R,SPO2: 96 Ox,ETCO2: ,BG: ,PAIN: ,GCS: , 09:00,Surgical Mask on Patient,Response: Unchanged 09:01,At Destination 09:11,Call Closed Disclaimer v1.1 Copyright 2020 [employer] This EMS Care Summary contains data elements from the applicable legal record (which may be displayed differently). It is designed to provide pertinent information for the following purposes: continuity of care, clinical quality, and state data reporting. The complete legal record is available to ED staff and administrators of the receiving hospital in [employer]'s Patient Tracker. All data is provided "as is."
[~2020-10-14 09:04] MED LIST changes: +D3-200050 MCG PO; +FLUTICASONE PRO16 GM NARES
[2020-10-14] MEDS ORDERED: NORCO5 PO (10:30)
[2020-10-14 10:41] VITALS: BP 163/75
== END 2020-10-14 10:40 | disposition home or self-care (01) ==
LOC: ER 09:04
DX: S80.02XA Contusion of left knee, initial encounter (principal); S80.01XA Contusion of right knee, initial encounter; M72.2 Plantar fascial fibromatosis; M81.0 Age-related osteoporosis without current pathological fracture; J45.909 Unspecified asthma, uncomplicated; Z79.899 Other long term (current) drug therapy; Z87.891 Personal history of nicotine dependence; W22.8XXA Striking against or struck by other objects, initial encounter; Y93.89 Activity, other specified; Y92.89 Other specified places as the place of occurrence of the external cause; Y99.8 Other external cause status

== ENCOUNTER → 2020-11-13 | Outpatient (CLI) | payer OTHER ==
[~2020-11-13] VITALS: Ht 162.6 cm; Wt 52.2 kg
[~2020-11-13] MED LIST changes: +ADVAIR 250-501 EACH INH; +NORCO5 PO; +OMEPRAZOLE40 MG PO
[2020-11-13 14:00] VITALS: BP 160/84
--- NOTE | 2020-11-13 14:33 | NUR ---
Pain Clinic Assessment: 1. History of Osteoarthritis: RIGHT HAND LEFT ELBOW History of Rheumatoid Arthritis: Not Applicable 2. Height: 5 ft. 4 in. 162.6 cm. Weight: 115.0 lb. oz. 52.164 kg. Patient's BMI: 19.7 3. Vital Signs: BP: 160/84 Pulse: 60 Resp: 14 Temp: 02 Sat: 100 ECG Mon: 4. Pain Intensity: 5 5. Fall Risk: Dizziness: N Needs help standing or walking: Y Fallen in the last 3 months: N Fall risk comments: 6. Patient on Blood Thinner: None 7. History of Hypertension: Y 8. Opioid Therapy greater than 6 weeks: Opiate Contract Signed: 9. Risk Assessment Tool Provided: low-1 10. Functional Assessment Tool: 11. Recreational Drug Use: Never Drug Type: Tobacco Use: Former Smoker Tobacco Type: Amount or Packs/day: How Many Years: Alcohol Use: Yes Frequency: Daily Quant: 1-2
== END ==
LOC: PAIN 07:46
PROVIDERS: ATTEND Anesthesiology Pain Medicine
DX: M47.816 Spondylosis without myelopathy or radiculopathy, lumbar region (principal); Z87.891 Personal history of nicotine dependence; Z72.89 Other problems related to lifestyle; Z85.3 Personal history of malignant neoplasm of breast; Z92.3 Personal history of irradiation

== ENCOUNTER 2020-11-20 08:46 | Inpatient (IN) | payer OTHER ==
[~2020-11-20] VITALS: Ht 162.6 cm; Wt 52.2 kg
--- NOTE | ~2020-11-20 | EMS ---
[address] [address] EMS Patient Care Report Name: RAMON RAMACHANDRAN Room #: 447-P ADM IN M.R.#: [id number] Admission: 11/20/20 Attend Phys: Glen Pinedo MD Discharge: Date of : 41 Report #: [id number] THIS REPORT FOR: //name// Report Transmitted: 11/20/2020 17:13 EMS Care Summary [facility] MED-ACT Incident [id number] @ 11/20/2020 08:11 Incident Location [address] [place] [address] Patient RAMON RAMACHANDRAN Female, 75 Years 1945 Patient Address [address] [place] [address] Patient History Asthma,Hypertension (HTN),Back Pain (Chronic), Patient Allergies Lyrica,Gabapentin, Patient Medications Cardizem, Prilosec, Vitamin D, Advair, Proair, Atenolol, Chief Complaint My lower back hurts. Disposition Transported No Lights/[place] Dispatch Reason Back Pain (Non-Traumatic) Transported To [facility] Narrative Arrived to find a 75 yr old female patient sitting up on the edge of her bed holding on to her walker in no obvious acute distress experiencing spasms in [address] [address] EMS Patient Care Report Name: RAMON RAMACHANDRAN Room #: 447-P ADM IN [facility]#: [id number] Admission: 11/20/20 Attend Phys: Glen Pinedo MD Discharge: Date of : 41 Report #: [id number] her lower back every few minutes. The patient has a chronic history of lower back pain. In 2016 the patient suffered a compression fracture in "L5" and had a "vertebralplasty." Patient states she suffered a fall back in October, landing in on her knees. Patient also reports she has an appointment coming up in the next two weeks to have a Cortisone injection in her back. This morning in the middle of the night she woke up with a "vice" like sensation in her lower back that tightens up. Patient states on a regular basis her pain is about a "3" on a 0 to 10 scale. This morning her pain is at a " 6 or 7". At times the patient has brief bouts of intense pain and it increases to about a "10" on a 0 to 10 scale. Patient denies falling today. A: See assessment tab. Physical exam. Vital signs. Patient was assisted to a standing position and then she sat on the cot. Moved to unit. En route to [facility]. Vital signs were monitored during transport. Patient rested on the cot and she would have episodes when her back would spasm, especially when we would hit bumps. We contacted [facility] on the [employer] radio. Patient was alert with stable vital signs upon arrival at [facility]. Patient care was transferred to an ED RN in room 3 at [facility] and the cot sheet was utilized to transfer patient care. Patient requested ambulance transport to [facility]. Initial Vitals @08:38P: 74,R: 16,BP: 169/89,Pain: 6/10,GCS: 15,SpO2: 100,Revised Trauma: 12, @08:28P: 78,R: 16,BP: 182/96,Pain: 6/10,GCS: 15,SpO2: 97,Revised Trauma: 12, @08:18P: 82,R: 16,BP: 179/92,Pain: 6/10,GCS: 15,Temp: 97.2F,SpO2: 95,Revised Trauma: 12, Assessments @08:20MENTAL:Person Oriented,Time Oriented,Place Oriented,Event Oriented,SKIN:HEENT:LUNG SOUNDS:ABDOMEN:PELVIS//GI:EXTREMITIES:Left Arm: No Abnormalities,Right Arm: No Abnormalities,Left Leg: No Abnormalities,Right Leg: No Abnormalities,PULSE:Radial: 2+ Normal,NEURO:No Abnormalities, Impression Back Pain Procedures @08:20Surgical Mask on PatientResponse: Unchanged Timeline 08:09,Call Received [address] [address] EMS Patient Care Report Name: RAMON RAMACHANDRAN Room #: 447-P ADM IN M.R.#: [id number] Admission: 11/20/20 Attend Phys: Glen Pinedo MD Discharge: Date of : 41 Report #: [id number] 08:09,Psap Call 08:11,Dispatched 08:12,En Route 08:15,On Scene 08:16,At Patient 08:18,BP: 179/92 M,PULSE: 82,RR: 16 R,SPO2: 95 Ox,ETCO2: ,BG: ,PAIN: 6,GCS: 15, 08:20,Surgical Mask on Patient,Response: Unchanged 08:27,Depart Scene 08:28,BP: 182/96 M,PULSE: 78,RR: 16 R,SPO2: 97 Ox,ETCO2: ,BG: ,PAIN: 6,GCS: 15, 08:38,BP: 169/89 M,PULSE: 74,RR: 16 R,SPO2: 100 Ox,ETCO2: ,BG: ,PAIN: 6,GCS: 15, 08:40,At Destination 09:01,Call Closed Disclaimer v1.1 Copyright 2020 [employer] This EMS Care Summary contains data elements from the applicable legal record (which may be displayed differently). It is designed to provide pertinent information for the following purposes: continuity of care, clinical quality, and state data reporting. The complete legal record is available to ED staff and administrators of the receiving hospital in [email or web address]'s Patient Tracker. All data is provided "as is."
[2020-11-20 08:46] VITALS: BP 138/77
--- NOTE | 2020-11-20 09:25 | NUR ---
CALLED PHARMACY AND SPOKE TO BENIGNO, VERIFIED TORADOL IM APPROVED FOR DELTOID USE.
--- NOTE | 2020-11-20 10:59 | NUR ---
PAGED IV TEAM TO PLACE IV.
[2020-11-20 11:40] LABS: ABSOLUTE NEUTROPHILS 5.8 thou/uL (1.4-8.2); BASOPHILS 1.1 % (0.0-2.0); HEMATOCRIT 42.3 % (37.0-47.0); HEMOGLOBIN 14.3 gm/dL (12.0-15.0); LYMPHOCYTES 15.1 % (24.0-44.0); MCH 33.5 pg (26.0-34.0); MCHC 33.8 g/dL (28.0-37.0); MCV 99.1 fL (80.0-100.0); MONOCYTES 8.4 % (1.0-8.0); PLATELET COUNT 296 thou/uL (150-400); POLYS 71.4 % (36.0-66.0); RBC 4.27 mil/uL (4.20-5.00); RDW 12.6 % (10.5-14.5); WBC 8.1 thou/uL (4.0-11.0)
[2020-11-20 11:51] LABS: CALCIUM 9.1 mg/dL (8.5-10.1); CREATININE 0.5 mg/dL (0.6-1.0); POTASSIUM 4.7 mmol/L (3.5-5.1)
[2020-11-20 11:56] LABS: MAGNESIUM 1.9 mg/dL (1.8-2.4); TOTAL BILIRUBIN 0.6 mg/dL (0.2-1.0); TOTAL PROTEIN 6.8 g/dL (6.4-8.2)
[2020-11-20 12:07] VITALS: BP 133/76
--- NOTE | 2020-11-20 12:22 | NUR ---
ATTEMPTED TO CALL REPORT, WAS NOTIFIED THAT ALL NURSING STAFF ARE IN A RAPID RESPONSE AT THIS TIME AND UNAVAILABLE FOR REPORT. WILL TRY AGAIN.
--- NOTE | 2020-11-20 12:33 | NUR ---
ATTEMPTED TO CALL REPORT, NOTIFIED NO ONE IS AVAILABLE STILL D/T RAPID RESPONSE. NOTIFIED CHARGE NOT AVAILABLE EITHER. WILL TRY AGAIN.
--- NOTE | 2020-11-20 13:01 | NUR ---
ATTEMPTED TO CALL REPORT AGAIN, NO ANSWER ON UNIT.
[2020-11-20 13:02] VITALS: BP 136/75
[2020-11-20 14:05] VITALS: BP 140/80
--- NOTE | 2020-11-20 14:07 | NUR ---
assessment: CM REVIEWED CHART AND MET WITH PATIENT AT THE BEDSIDE. PT IS ALERT AND ORIENTED X4. PT WAS ADMITTED DUE TO INTRACTABLE BACK PAIN AND NEUROSURGERY HAS BEEN CONSULTED. PT HAS HX OF L5 COMPRESSION FRACTURE S/P VERTEBROPLASTY. PT LIVES IN AN APT ALONE. PT REPORTS HAVING ABOUT 5 STEPS WITH HANDRAILS TO ENTER AND NO STEPS SHE HAS TO USE ONCE INSIDE. PT REPORTS THAT SHE HAS A CANE AND WALKER AT HOME TO ASSIST WITH AMBULATION. PT REPORTS HER BROTHER IN LAW AND SISTER ARE VERY SUPPORTIVE. PT HAS BEEN TO [facility] HERE AT [facility] IN THE PAST AND HAS HAD [facility] IN THE PAST. PT REPORTS IF SHE NEEDS HH AGAIN SHE PREFERS TO USE THEM. CM WILL CONTINUE TO FOLLOW AND AWAIT FURTHER INPUT FROM NEUROSURGERY.
[2020-11-20] MEDS ORDERED: ADVAIR 250-501 EACH INH ×2 (15:48)
[2020-11-20 15:59] LABS: APTT 27.8 Seconds (24.5-32.8); PROTIME 10.9 Seconds (10.5-12.1)
--- NOTE | 2020-11-20 17:07 | NUR ---
PATIENT ARRIVED TO FLOOR 1344 FROM ER TO ROOM 447, PATIENT ALERT AND ORINTED, COMPLAIN OF PAIN AND PAIN MEDICATION GIVE PER MAR, UP WITH ASSIST, CALLS OUT FOR USE OF BED SANTANA, VITAL SIGNS STABLE, AND AFBRIELE. BED ALARM ON, CALL LIGHT WITH IN REACH, WILL CONTINUE TO MONITOR.
[2020-11-20 19:43] VITALS: BP 130/80
--- NOTE | 2020-11-21 02:56 | NUR ---
ASSESSED AT START OF SHIFT. PT RESTING IN BED. A&O4 C/O PAIN MANAGED BY PO HYDROCODONE. VOIDS VIA BEDPAN. CLEAR LUNGS SOUNDS. ALEJANDRO PO FLUIDS. NO FURTHER SIGNS OF DISCOMFORT. FALL PREC IN PLACE AND CALL LIGHT AT REACH WILL CONT TO MONITOR TILL EOS.
[2020-11-21 05:02] VITALS: BP 124/74
[2020-11-21 05:47] LABS: ABSOLUTE NEUTROPHILS 2.9 thou/uL (1.4-8.2); BASOPHILS 1.2 % (0.0-2.0); EOSINOPHILS 6.5 % (0.0-3.0); HEMATOCRIT 39.4 % (37.0-47.0); HEMOGLOBIN 13.5 gm/dL (12.0-15.0); LYMPHOCYTES 25.8 % (24.0-44.0); MCH 33.9 pg (26.0-34.0); MCHC 34.3 g/dL (28.0-37.0); MCV 98.7 fL (80.0-100.0); MONOCYTES 10.5 % (1.0-8.0); PLATELET COUNT 281 thou/uL (150-400); RBC 3.99 mil/uL (4.20-5.00); RDW 12.3 % (10.5-14.5); WBC 5.3 thou/uL (4.0-11.0)
[2020-11-21 06:04] LABS: CREATININE 0.6 mg/dL (0.6-1.0); MAGNESIUM 1.8 mg/dL (1.8-2.4)
[2020-11-21 07:36] VITALS: BP 133/66
--- NOTE | 2020-11-21 15:58 | NUR ---
ON-GOING ASSESSMENT: CM REVIEWED CHART. PT MET WITH NEUROSURGERY AND MAY NEED KYPHO. CM WILL CONTINUE TO FOLLOW TO ASSIST NEEDED.
--- NOTE | 2020-11-21 19:26 | NUR ---
ASSUMED CARE OF PT AT 0700 THIS MORNING. PT WAS ADMITTED FOR FX OF L2 VERT. PT IS S/OX4, EYES PERRLA, LUNGS ARE CLEAR ALL [place]. DISTAL PULSES ARE STRONG AND =. ASSESSMENTS DOCUMENTED IN CHART AND OTHERWISE UNREMARKABLE. CALL LIGHT AND OTHER NEEDS ARE WITHIN REACH OF THE PT. MEDS AND TX GIVEN NEEDED AND SCHEDULED.
[2020-11-21 19:41] VITALS: BP 99/63
[2020-11-21 20:01] VITALS: BP 113/67
[2020-11-22] VITALS (7 sets, daily range): BP systolic 111–156; BP diastolic 72–89
--- NOTE | 2020-11-22 03:46 | NUR ---
PT IS A/O X4 AND IS UP WITH ASSISTANCE TO THE BSC. VSS AFEBRILE. C/O PAIN TO LOWER BACK. PRN PAIN MEDICATION GIVEN DIRECTED. PT IS CURRENTLY NPO AWAITIN PROCEDURE IN THE AM. FALL PRECAUTIONS IN PLACE, CALL LIGHT IS WITHIN REACH. WILL CONTINUE TO MONITOR.
--- NOTE | 2020-11-22 11:46 | NUR ---
on-going assessment: CM REVIEWED CHART AND SPOKE WITH ATTENDING. PT IS GETTING KYPHOPLASTY THIS AM. [facility] HAS BEEN CONSULTED TO EVALUATE PATIENT. CM SPOKE WITH [facility] AND PT WILL BE EVALUATED IN THE AM TO SEE IF SHE IS A CANIDATE. CM WILL CONTINUE TO FOLLOW TO ASSIST NEEDED.
--- NOTE | 2020-11-22 13:12 | NUR ---
PATIENT ALERT AND ORINTED X4, ON ROOM AIR, WENT TO PROCEDURE TODAY, PAIN MORE CONTROLLED AFTER, VITAL SIGNS STABLE, AFBRIELE, CALL LIGHT WITH IN REACH, WILL CONTINUE TO MONITOR.
[2020-11-23 03:20] VITALS: BP 121/68
--- NOTE | 2020-11-23 03:48 | NUR ---
PT IS A/O X4 AND IS UP WITH ASSISTANCE TO THE BSC. PLEASANT AND COOPERATIVE. VSS AFEBRILE. C/O PAIN TO LOWER BACK. PRN PAIN MEDICATION GIVEN DIRECTED. SCHEDULED MEDICATIONS GIVEN PER JUL. FALL PRECAUTIONS IN PLACE, CALL LIGHT IS WITHIN REACH. PT CALLS OUT APPROPRIATELY FOR ASSISTANCE. WILL CONTINUE TO MONITOR.
[2020-11-23 07:45] VITALS: BP 126/69
--- NOTE | 2020-11-23 14:56 | NUR ---
on-going assessment: CM REVIEWED CHART. CM SPOKE WITH [facility] WHO REPORTS THEY CAN ACCEPT PATIENT. CM MET WITH PATIENT AT THE BEDSIDE AND SHE IS AGREEABLE WITH [facility]. [facility] STATING THEY CAN ACCEPT ONCE MEDICAL PHYSICIAN FEELS STABLE.
[2020-11-23 15:40] VITALS: BP 134/72
[2020-11-23] MEDS ORDERED: TYLENOL325 MG PO ×2 (16:05)
[2020-11-23] MEDS ORDERED: LIDOPATCH1 EACH TRANSDERM ×2 (16:05)
[2020-11-23] MEDS ORDERED: MIRALAX17 GM PO ×2 (16:05)
--- NOTE | 2020-11-23 16:16 | NUR ---
ASSUMED CARE OF PT AT 0700 THIS MORNING. PT IS A/OX4, SKIN INTACT WITH NO TENTING, SMALL INCISION IN RIGHT LOWER BACK WITH BAND-AID COVERING. PT IS TO BE GOING TO [facility] LATER IN THE AFTERNOON. ASSESSMENTS NOTED IN CHART AND OTHERWISE UNREMARKABLE. IV IN LT FA SL, CALL LIGHT AND OTHER NEEDS ARE WITHIN REACH. PT HAS BEEN USING BEDPAN DUE TO PAIN IN LOWER BACK. MEDS AND OTHER TX GIVEN NEEDED AND SCHEDULED.
== END 2020-11-23 17:41 | DRG 516 ==
LOC: ER 08:46 → EROBS 10:44 → 4S 10:44
PROVIDERS: Nurse Practitioner; ADMIT Hospitalist; ATTEND Hospitalist
PROC: 0QU03JZ Supplement Lumbar Vertebra with Synthetic Substitute, Percutaneous Approach (ICD-10-PCS; principal; 2020-11-22)
PROC: 0QS03ZZ Reposition Lumbar Vertebra, Percutaneous Approach (ICD-10-PCS; principal; 2020-11-22)
DX: M48.56XA Collapsed vertebra, not elsewhere classified, lumbar region, initial encounter for fracture (principal); E44.1 Mild protein-calorie malnutrition; I10 Essential (primary) hypertension; M19.90 Unspecified osteoarthritis, unspecified site; G62.9 Polyneuropathy, unspecified; G89.29 Other chronic pain; M72.2 Plantar fascial fibromatosis; M48.061 Spinal stenosis, lumbar region without neurogenic claudication; R26.89 Other abnormalities of gait and mobility; M40.299 Other kyphosis, site unspecified; J45.909 Unspecified asthma, uncomplicated; K21.9 Gastro-esophageal reflux disease without esophagitis; Z20.822 Contact with and (suspected) exposure to COVID-19; Z85.3 Personal history of malignant neoplasm of breast; Z88.8 Allergy status to other drugs, medicaments and biological substances; Z98.42 Cataract extraction status, left eye; Z98.41 Cataract extraction status, right eye; Z87.891 Personal history of nicotine dependence
CPT/HCPCS: 10195

== ENCOUNTER 2020-11-23 15:44 | Inpatient (IN) | payer OTHER ==
[~2020-11-23] VITALS: Ht 162.6 cm; Wt 49.0 kg
[2020-11-23] MEDS ORDERED: TYLENOL325 MG PO ×2 (16:05)
[2020-11-23] MEDS ORDERED: LIDOPATCH1 EACH TRANSDERM ×2 (16:05)
[2020-11-23] MEDS ORDERED: MIRALAX17 GM PO ×2 (16:05)
[2020-11-23 18:46] VITALS: BP 151/88
--- NOTE | 2020-11-23 19:14 | NUR ---
PT ARRIVED TO FLOOR AT APPROX 1730. PT. A&OX4. ORIENTATED PT TO ROOM AND PROCEDURES. VS CHARTED WILL CONTINUE TO MONITOR.
--- NOTE | 2020-11-24 01:01 | NUR ---
ASSUMED CARE APPROX 0 EVENING 11/23. PT ALERT AND ORIENTED X4, APPROPRIATE AND COOPERATIVE. PT UP TO BSC SO FAR TONIGHT TO HAVE 2 SMALL FORMED BMS. PT GIVEN PAIN MEDS ORDERED FOR PAIN. PT PULLED TAPE OFF HER LEFT FOREARM AND SKIN TORE THEREFORE SKIN TEAR TO LEFT FOREARM. APPLIED 3X3 FOAM PAD TO SITE. PT APPEARS TO BE SLEEPING AT PRESENT. BED ALARM ON AND CALL LIGHT IN REACH. WILL CONTINUE TO MONITOR.
[2020-11-24 04:59] LABS: HEMATOCRIT 38.8 % (37.0-47.0); MCH 33.5 pg (26.0-34.0); MCHC 33.6 g/dL (28.0-37.0); MCV 99.7 fL (80.0-100.0); RBC 3.89 mil/uL (4.20-5.00); RDW 12.5 % (10.5-14.5); WBC 5.4 thou/uL (4.0-11.0)
[2020-11-24 05:15] LABS: CALCIUM 9.3 mg/dL (8.5-10.1); CREATININE 0.5 mg/dL (0.6-1.0); POTASSIUM 3.6 mmol/L (3.5-5.1)
[2020-11-24 06:00] LABS: FOLIC ACID 6.2 ng/mL (8.6-58.9)
--- NOTE | 2020-11-24 09:38 | NUR ---
Chart review, cm visited with patient while she was getting ready to work with physical therapy. Intro to cm and dcp. She been on acute rehab here in the past. She lives alone, 5 steps up to apartment. Has cane and walker. Support from sister and brother in law if needed. PCP dr noble. Manages own medication. Will cont following as needed for dc needs.
--- NOTE | 2020-11-24 11:35 | NUR ---
ASSUMED CARE OF PT AT 0700 THIS MORNING. PT IS A/OX4, SKIN INTACT WITH NO TENTING. PT HAS SMALL SITE ON RIGHT LOWER BACK COVERED WITH BAND-AID.PT IS IN GOOD SPIRITS AND IS READY TO BE OVER AND HOME. ASSESSMENTS NOTED IN CHART AND OTHERWISE UNREMARKABLE. CALL LIGHT AND OTHER NEEDS ARE WITHIN REACH. MEDS AND TX GIVEN NEEDED AND SCHEDULED. WILL NOTE ANY CHANGES.
--- NOTE | 2020-11-24 13:18 | NUR ---
Assess due to consult received. Pt admit to rehab unit s/p kyphoplasty. Pt presents very small frame size and pt reports this is usual for her. Wts average around 115 lb and pt reported 108 lb was bedscale and not accurate. Enjoyed lunch, wants to be on regular diet instead of heart healthy-reasonable request. B12 wnl, but folate 6.2-recommend supplementation. Pt able to ordeer own menu choices. Low nutrition risk
--- NOTE | 2020-11-24 13:20 | NUR ---
Folate 6.2-recommend supplementation
[2020-11-24 20:10] VITALS: BP 127/77
--- NOTE | 2020-11-25 01:56 | NUR ---
assumed care approx 1900 evening 11/24. pt alert and oriented x4, pleasant and cooperative. pt up to bsc with minimal assist. pt in good mood stating she had a good day. pt appears to be sleeping soundly. bed alarm on and call light in reach. will continue to monitor.
[2020-11-25 08:00] VITALS: BP 127/71
--- NOTE | 2020-11-25 18:30 | NUR ---
Assumed pt care at 0700. Alert and oriented x4. Vital sign stable. Active bowel sound. calm and cooperative with care. Took meds whole with thin liquids, no difficulty noted. pt is on room air. Ambulates with a gait belt with the assistance of one staff. Pt worked on ADLS with OT. pt c/o pain, meds administered as ordered. Pt is progressing good towards d/c goals. No bowel movement noted this shift. pt is continent of bowel and bladder. AT this time pt is in her room. Will continue to monitor.
[2020-11-25 19:33] VITALS: BP 123/77
--- NOTE | 2020-11-26 02:42 | NUR ---
PATIENT CALLING FOR ASSIST UP TO BSC. ICE TO BACK WHEN IN CHAIR, TREY AT HS INITIATED, SEEMS TO BE HELPING EASE PAIN AND IS NOT ASKING FOR HYDROCODONE THIS SHIFT; SHE LAST HAD IT AT NOON YESTERDAY. BRIT AND REMEMBERS STAFF MEMBER FROM PREVIOUS VISIT
[2020-11-26 07:15] VITALS: BP 131/81
--- NOTE | 2020-11-26 16:32 | NUR ---
ADM HYDROCODONE 5MG FOR PAIN TO BACK OF 4 ON 1-10 SCALE.
--- NOTE | 2020-11-26 18:44 | NUR ---
SHIFT SUMMARY; PT MEDICATED FOR PAIN TWICE TODAY, AND HAD COMPLETE PAIN CONTROL EACH TIME. PT STATED CONCERN THAT HER SISTER HAD AN OPIOD USE RELATED , AND SHE WAS CONCERNED, BUT SHE WANTED TO STAY "ON TOP OF THE PAIN" FOR NOW. PT IS REQUESTING HYDROCODONE AT APPROPRIATE INTERVALS, AND DISCUSSED WEANING HERSELF TO TYLENOL WHEN NOT DOING THERAPIES. PT ALERT, APPROPRIATE, PLEASANT. PAIN ALSO TREATED WITH ICE PACK TO LUMBAR SPINE AND PT VERBALIZED THAT THIS ALSO HELPED SIGNIFICANTLY. NOTED EDEMA AT RT 3RD METCARPAL, AND AT LEFT ELBOW, AND PT ASKED IF WE HAD CHECKED ANY RHEUMATOID PANELS. NOTED TO ONCOMING SHIFT TO REQUEST OF MD ON ROUNDS IN THE AM.
[2020-11-26 19:30] VITALS: BP 106/63
--- NOTE | 2020-11-26 23:23 | NUR ---
ASSUMED CARE OF PT AT 1930. PT IS A&OX4. IS ON ROOM AIR. DENIES PAIN. IS STABLE. REPORTS NUMBNESS IN FEET. IS UP WITH STANDBY ASSIST, GB, WALKER. FALL PRECAUTIONS & HOURLY ROUNDING CONTINUED THIS SHIFT. LABS & VITALS REVIEWED. LIDOCAINE PTACH REMOVED FROM BACK. CALL LIGHT WITHIN REACH. WILL CONTINUE TO MONITOR. IS ABLE TO TURN SELF IN BED.
[2020-11-27 07:15] VITALS: BP 132/79
[2020-11-27 07:45] VITALS: BP 132/79
[2020-11-27 19:15] VITALS: BP 124/59
--- NOTE | 2020-11-28 02:29 | NUR ---
assumed care approx 1899 evening 11/27. pt alert and oriented x4, pleasant and cooperative. pt up to bathroom with walker to void without difficulty. pt took hs meds with water tolerating well. pt stated she felt good about her therapy and progress. pt appears to be sleeping soundly. bed alarm on and call light in reach. will continue to monitor.
[2020-11-28 07:15] VITALS: BP 135/78
--- NOTE | 2020-11-28 12:45 | NUR ---
Team meeting, recommendation: dc 12/04/20 with hh ( pt, ot, nursing).
--- NOTE | 2020-11-28 12:53 | NUR ---
Team meeting, recommendation: dc 12/04/20 with hh ( pt, ot, nursing).
[2020-11-28 19:19] VITALS: BP 126/76
[2020-11-28 19:20] VITALS: BP 135/78
--- NOTE | 2020-11-29 02:19 | NUR ---
assumed care approx 1900 evening 11/28. pt alert and oriented x4, somewhat anxious and frustrated at beginning of shift however more calm after sheets changed and pt given pain meds. pt up to bathroom before hs and appears to be sleeping soundly. bed alarm on and call light in reach. will continue to monitor.
[2020-11-29 06:38] LABS: ABSOLUTE NEUTROPHILS 2.1 thou/uL (1.4-8.2); BASOPHILS 1.7 % (0.0-2.0); EOSINOPHILS 6.9 % (0.0-3.0); HEMATOCRIT 38.2 % (37.0-47.0); HEMOGLOBIN 13.1 gm/dL (12.0-15.0); LYMPHOCYTES 31.7 % (24.0-44.0); MCH 33.8 pg (26.0-34.0); MCHC 34.3 g/dL (28.0-37.0); MCV 98.5 fL (80.0-100.0); MONOCYTES 12.7 % (1.0-8.0); PLATELET COUNT 333 thou/uL (150-400); RBC 3.88 mil/uL (4.20-5.00); RDW 12.7 % (10.5-14.5); WBC 4.4 thou/uL (4.0-11.0)
[2020-11-29 06:51] LABS: CALCIUM 9.4 mg/dL (8.5-10.1); CREATININE 0.6 mg/dL (0.6-1.0); MAGNESIUM 1.7 mg/dL (1.8-2.4); POTASSIUM 3.9 mmol/L (3.5-5.1)
--- NOTE | 2020-11-29 07:46 | NUR ---
ASSUMED C/O PT AT 0700. PT A&OX4. PT WILLINGLY WORKS WITH THERAPIES. PT GAIT STEADY WITH WALKER. PT TOLERATING REGULAR DIET. WILL CONTINUE TO MONITOR.
--- NOTE | 2020-11-29 13:51 | NUR ---
FAXED HOME HEALTH REFERRAL TO [facility] WITH NEGATIVE COVID RESULT (11/23/20). CONFIRMED WITH JOSE/LIAISON THAT I WAS SENDING REFERRAL AND PATIENT IS SCHEDULED TO DISCHARGE ON 12/04/20. WILL CONFIRM THEY CAN ACCEPT. [facility] P [phone]; FAX [phone]
--- NOTE | 2020-11-29 14:36 | NUR ---
Cm spoke with sister in law camila via phone call. She stated she lives alone, i can stay with her for few days only. We kind of hoping that after this she could go for her 20days stay in facility since she does live alone per camila. Cm education that will have [facility] few times week and would have MD or JUMPBASTING MACHINE OPERATOR reach out about her questions. Will cont following as needed for dc needs. anticipated dc 12/04/20.
[2020-11-29 19:37] VITALS: BP 140/73
--- NOTE | 2020-11-30 03:23 | NUR ---
UP WITH STANDBY ASSISTAND WALKER PATIENT SWEARS SHE HEARD THAT SHE WAS A WHITE BELT NOW. HYDROCODONE PRN WITH ROBAXIN FOR BACK PAIN, VOLTAREN GEL INITIATED
[2020-11-30 08:00] VITALS: BP 139/70
[2020-11-30 10:20] VITALS: BP 149/86
--- NOTE | 2020-11-30 18:00 | NUR ---
PT UPSET EARLIER BY DC PLANNING CONCERNS, AND REPORT FROM CM THAT SHE MAY HAVE TO GO TO SNF. REASSURED PT THAT THE DC PLAN WAS HOME WITH HH. PT STATED THAT SHE DID NOT UNDERSTAND WHY HER FAMILY TOLD THE CM THAT SHE WANTED TO GO TO SK[facility], WHEN THIS WAS NEVER THE PLAN. PT STATED THAT SHE IS PLANNING TO GO HOME AT DC. NO FURTHER CONCERNS VOICED ONCE THE DC PLAN FROM WAS REVIEWED WITH HER. PT WAS MEDICATED TWICE FOR PAIN WITH HYDROCODONE, AND ICE PACK WAS APPLIED TO LEFT ELBOW. PT ALSO HAD DRESSING CHANGE TO LEFT FOREARM AND PHOTO WAS TAKEN.
[2020-11-30 19:52] VITALS: BP 133/79
--- NOTE | 2020-12-01 02:29 | NUR ---
CALLING FOR ASSIST TO TO TOILET, USES WALKER FROM HOME. LIDODERM PATCH DURING DAY. SMALL AMOUNT OF VOLTAREN GEL TO RIGHT KNUCKLES, DORSAL FEET, AND LEFT ELBOW. APPRECIATES ROBAXIN SCHEDULED AND HYDROCODONE PRN
[2020-12-01 08:00] VITALS: BP 136/62
[2020-12-01 10:31] LABS: CLARITY CLOUDY; COLOR YELLOW; SOURCE SYNOVIAL; TOTAL VOLUME 1 mL
--- NOTE | 2020-12-01 11:09 | NUR ---
Nutrition followup: pt continues to eat well, 50-100% of meals on regular diet. No weight since 11/23. UBW reported as 115#, no changes. Folate low, supplement ordered by ELECTROFORMER following RD recommendation. Pt able to order meals. Food preferences provided. Low nutrition risk.
[2020-12-01 12:36] LABS: BF NUCLEATED CELLS 29805 /mm3; BF RBC 5223 /mm3
--- NOTE | 2020-12-01 13:52 | NUR ---
[facility] is able to accept for dc home on 12/04/20. Family agrees with dc plans.
[2020-12-01 13:58] LABS: BF MACROPHAGE 9 %; BF NEUTROPHILS 89 %
--- NOTE | 2020-12-01 14:26 | NUR ---
ASSUMED CARE AT 0700. PATINET IS ALERT AND ORIENTED X4. CARPENTER STREETCAR ARE EQUAL. GARCIA'S, LUNGS ARE CLEAR AND DEMINISHED. ABD IS SOFT WITH BSX4. UP WITH GAIT BELT AND WALKER TO VOID CLAUDE COLORED URINE. PATIENT HAS LEFT ELBOW SWELLING. DR. HAYS HERE TO ASPIRATE HER ELBOW. SPECIUMEN SEND TO LAB FOR AEROBIC/ANAAEROBIC CULTURES, CRYSTALS, AND CELL COUNT. UP IN THE CHAIR FOR MEALS. FALL AND SAFETY PROTOCOLS IN PLACE. C/O LOW BACK PAIN. MEDICATED WITH PRN PAIN MED, & PAIN PATCH SCED. CONTINUES TO PROGRESS TOWARDS D/C GOALS. WILL CONTINUE TO MONITER.
[2020-12-01] MEDS ORDERED: HYDROCODON-ACE1 EAC7 PO ×2 (16:34)
[2020-12-01 20:12] VITALS: BP 152/77
--- NOTE | 2020-12-02 04:09 | NUR ---
ASSUMED CARE APPROX 1899 EVENING 12/01. PT ALERT AND ORIENTED X4, PLEASANT AND COOPERATIVE. PT MODIFIED INDEP IN ROOM TOLERATING WELL. PT GIVEN HS MEDS WITH WATER TOLERATED WELL. PT APPEARS TO BE SLEEPING SOUNDLY. CALL LIGHT IN REACH. WILL CONTINUE TO MONITOR.
[2020-12-02 07:30] VITALS: BP 139/77
[2020-12-02 08:00] VITALS: BP 139/77
--- NOTE | 2020-12-02 18:05 | NUR ---
ASSUMED CARE OF PT AT 0700. PT UP MOD I IN ROOM. PT WILLINGLY WORKS WITH THERAPIES. PAIN CONTROLLED WITH PRN HYROCODONE AND SCHEDULED ROBAXIN. PT A&OX4. PT TOLERATING REGULAR DIET. PT SHOULD DC HOME ON FRIDAY.
[2020-12-02 22:00] VITALS: BP 145/73
--- NOTE | 2020-12-03 03:58 | NUR ---
assumed care approx 0 evening 12/02. pt alert and oriented x4, pleasant and cooperative. pt modified indep in room tolerating well. pt took hs meds with water. pt appears to be sleeping soundly. call light in reach. will continue to monitor.
[2020-12-03 07:15] VITALS: BP 145/85
[2020-12-03 08:45] VITALS: BP 145/85
--- NOTE | 2020-12-03 17:22 | NUR ---
ASSUMED CARE OF PT AT 0700. PT UP MOD I IN ROOM. PT SHOULD DC ON MONDAY 12/04. PT DID REPORT LOOSE STOOLS THIS AFTERNOON. ENCOURAGED PT TO ORDER TOAST APPLES AND BANNANAS. WILL CONTNIUE TO MONITOR.
[2020-12-03 19:45] VITALS: BP 154/75
--- NOTE | 2020-12-04 04:18 | NUR ---
ASSUMED CARE AT 1900, PATIENT IS A&OX4. DENIES SOB, REPORTS PAIN IN LOWER BACK, PAIN MANAGED WITH PRN HYDROCODONE. PATIENT IS MODIFIED INDEPENDENT IN ROOM. APPEARS TO BE SLEEPING ON HOURLY ROUNDS, CALL LIGHT PLACED WITHIN REACH.
[2020-12-04 08:00] VITALS: BP 165/93
--- NOTE | 2020-12-04 08:38 | PLAN ---
[facility] [place] [address] REHAB UNIT PLAN OF CARE Name: RAMON RAMACHANDRAN Room #: 511-P ADM IN M.R.#: [id number] Admission: 11/23/20 Attend Phys: Kvng Rodriguez MD Discharge: Date of : 41 Report #: [id number] THIS REPORT FOR: cc: Abisai Gasca Steven F. DO Smithson,Kvng Kerr MD ~ DATE OF SERVICE: 11/25/2020 PROGRESS NOTE/OVERALL PLAN OF CARE HISTORY OF PRESENT ILLNESS: The patient was seen on the acute inpatient rehab bajwa. She has been afebrile. Vital signs are stable. I visited her yesterday and she was in good spirits, cooperative. She did not want the muscle relaxer scheduled in the evenings and I have switched it to at bedtime p.r.n. status. She is motivated in her therapies. Pain is reasonably controlled post the kyphoplasty as discussed. She has no focal calf swelling. Some weakness, question foot drop on the left, which she notes is premorbid. She has been working in therapies. Transfers have been mod assist. Gait has been mod assist 10 feet with a 4-wheeled walker. In occupational therapy, lower body dressing has been mod assist with upper body dressing mod assist. ASSESSMENT: A 75-year-old female with the following problem list: 1. Acute L2 compression fracture, status post kyphoplasty. 2. Gait instability with lower extremity weakness. 3. Peripheral neuropathy, premorbid. 4. L4-L5 kyphosis. 5. Plantar fasciitis history. 6. L5 compression fracture, status post vertebroplasty in the past. 7. Asthma 8. Gastroesophageal reflux disease. 9. Hypertension. 10. Prior history of left hip fracture. PLAN: The overall plan of care is based on the pre-admit screen and information garnered from therapy assessments. 1. Estimated length of stay is probably going to be around 10 days. 2. Medical prognosis is reasonably good. 3. Anticipated interventions include the interdisciplinary acute inpatient rehabilitation program. 4. Anticipated functional outcomes would be for the patient to become modified independent with transfers, mobility, ADLs, so she can hopefully return back to her prior living situation. 5. Discharge destination would be back to the home setting where she lives alone in an apartment. 6. Expected therapy by discipline includes PT and OT 1 and 1-1/2 hours per day each 5 days a week throughout the duration of the acute [place] [address] REHAB UNIT PLAN OF CARE Name: RAMON RAMACHANDRAN Room #: 511-P [facility]#: [id number] Admission: 11/23/20 Attend Phys: Kvng Rodriguez MD Discharge: Date of : 43 Report #: [id number] stay. ADDENDUM: The patient's prognosis for significant practical improvement within a reasonable period of time appears good. Given the patient's complex medical condition and risks of further medical complication, rehabilitation services could not be safely provided at a lower level of care such as a senior care facility. <ELECTRONICALLY SIGNED> By: Kvng Rodriguez MD 12/04/20 0838 [id number] Kvng Rodriguez MD /nt
[2020-12-04] MEDS ORDERED: FOLIC ACID1 MG PO ×2 (09:54)
[2020-12-04] MEDS ORDERED: DICLOFENAC SOD100 G1 TOP ×2 (09:54)
[2020-12-04] MEDS ORDERED: MIRALAX17 GM PO ×4 (09:54→11:50)
[2020-12-04] MEDS ORDERED: METHOCARBAMOL500 M2 PO ×2 (09:54)
[2020-12-04] MEDS ORDERED: D3-200050 MCG PO ×2 (09:54)
[2020-12-04 09:58] LABS: SOURCE SYNOVIAL
[2020-12-04 11:14] VITALS: BP 165/93
--- NOTE | 2020-12-04 11:17 | NUR ---
Dc home today, siblings to transport her home today. No drive, till cleared by med. Family assist with medications and finances. Della ayaz ( pt, ot, and nursing).
[2020-12-04 12:34] VITALS: BP 158/82
--- NOTE | 2020-12-04 12:44 | NUR ---
FAXED DISCHARGE ORDERS, SUMMARY AND NEGATIVE COVID RESULT (11/23/20) TO [facility]. WILL CONFIRM THEY RECEIVED AND DATE THEY WILL BEGIN SERVICES. [facility] P [phone]; FAX [phone]
[2020-12-04 14:06] VITALS: BP 158/82
[2020-12-04 14:29] VITALS: BP 158/82
--- NOTE | 2020-12-04 20:51 | NUR ---
PATIENT DISCHARGED TO HOME WITH SISTER IN LAW. EDUCATION PROVIDED R/T MEDS AND FOLLOW UP APPOINTMENTS. DRESSING TO LEFT ARM SKIN TEAR CHANGED AND PT EDUCATED ON DRESSING CHANGES. ORDERS INCLUDED IN HER DC INSTRUCTIONS. PT UNABLE TO WHEEL SELF DUE TO PAIN AND FATIGUE, BUT TRANSFERRED INTO CAR WITH SBA.
== END 2020-12-04 14:45 | disposition home health service (06) | DRG 543 ==
PROVIDERS: Nurse Practitioner; Nurse Practitioner Family; Orthopaedic Surgery; ADMIT Physical Medicine & Rehabilitation; ATTEND Physical Medicine & Rehabilitation
DX: M48.56XA Collapsed vertebra, not elsewhere classified, lumbar region, initial encounter for fracture (principal); E46 Unspecified protein-calorie malnutrition; Z68.1 Body mass index [BMI] 19.9 or less, adult; R26.89 Other abnormalities of gait and mobility; K21.9 Gastro-esophageal reflux disease without esophagitis; I10 Essential (primary) hypertension; M40.299 Other kyphosis, site unspecified; G89.29 Other chronic pain; M19.90 Unspecified osteoarthritis, unspecified site; J45.909 Unspecified asthma, uncomplicated; G62.9 Polyneuropathy, unspecified; M54.5 Low back pain; Z60.2 Problems related to living alone; M72.8 Other fibroblastic disorders; E53.8 Deficiency of other specified B group vitamins; G31.84 Mild cognitive impairment of uncertain or unknown etiology; M43.16 Spondylolisthesis, lumbar region; Z85.3 Personal history of malignant neoplasm of breast; Z88.8 Allergy status to other drugs, medicaments and biological substances; Z87.891 Personal history of nicotine dependence; Z98.41 Cataract extraction status, right eye; Z98.42 Cataract extraction status, left eye; Z92.3 Personal history of irradiation
CPT/HCPCS: 10112

== ENCOUNTER 2020-12-26 13:01 | Inpatient (IN) | payer OTHER ==
[~2020-12-26] VITALS: Ht 162.6 cm; Wt 49.9 kg
--- NOTE | ~2020-12-26 | EMS ---
[address] [address] EMS Patient Care Report Name: MADIERAMON NAOMIE Room #: 437-P ADM IN M.R.#: [id number] Admission: 12/26/20 Attend Phys: Asaf Rossi MD Discharge: Date of : 43 Report #: [id number] THIS REPORT FOR: //name// Report Transmitted: 12/26/2020 19:43 EMS Care Summary [facility] MED-ACT Incident [id number] @ 12/26/2020 12:28 Incident Location [address] [place] [address] Patient RAMON RAMACHANDRAN Female, 75 Years 1945 Patient Address [address] [place] [address] Patient History Asthma,Hypertension (HTN),Back Pain (Chronic), Patient Allergies Lyrica,Gabapentin, Patient Medications Methocarbamol, Atenolol, Vitamin D, Advair, Hydrocodone, Cardizem, Proair, Prilosec, Chief Complaint "Muscle spasm" in my lower back. Disposition Transported No Lights/[place] Dispatch Reason Back Pain (Non-Traumatic) Transported To [facility] Narrative Arrived to find a 75 yr old female patient sitting up on her couch with a cold [facility] [address] [place] [address] EMS Patient Care Report Name: RAMON RAMACHANDRAN Room #: 437-P ADM IN [facility]#: [id number] Admission: 12/26/20 Attend Phys: Asaf Rossi MD Discharge: Date of : 43 Report #: [id number] pack on her lower back with a care provider from [facility] on scene. Patient states she recently came home after having a Kyphoplasty on L2 for a compression facture around November 21. Patient came home from in-patient rehab on 12/04. Over the weekend the patient has been reaching down to place braces on her lower legs and opening the sliding door to let the cat in. Patient states on Friday she started taking Hydrocodone every four hours and since then she has been feeling nauseous and her appetite has been decreased. This morning the patient's back pain returned and she states she has been experiencing "muscle spasms." Patient states the spasms go around her lower back and are squeezing in nature. Patient rates her pain at a "10" on a 0 to 10 scale when then occur. Otherwise her pain is closer to a "4" on a 0 to 10 scale at rest. When [facility] saw the condition the patient was in when they arrived EMS was summoned. A: See assessment tab. Physical exam. Vital signs. We assisted the patient to a standing position and she sat on the cot. Moved to [facility]. En route to [facility]. Vital signs were monitored during the short transport to [facility]. Patient rested on the cot in a position of comfort and stated her pain was at a "4" on a 0 to 10 scale. We contacted [facility] on the [employer] radio. Patient was alert with stable vital signs upon arrival at [facility]. Patient care was transferred to an ED RN in room 4 at [facility] and the cot sheet was utilized to transfer the patient. Patient requested ambulance transport to [facility]. Initial Vitals @12:45P: 78,R: 16,BP: 173/82,Pain: 4/10,GCS: 15,SpO2: 94,Revised Trauma: 12, @12:52P: 79,R: 16,BP: 171/79,Pain: 4/10,GCS: 15,SpO2: 93,Revised Trauma: 12, @12:37P: 77,R: 16,BP: 157/81,Pain: 4/10,GCS: 15,Temp: 98.1F,Glucose: -1,SpO2: 95,Revised Trauma: 12, Impression Back Pain Procedures @12:38Surgical Mask on PatientResponse: Unchanged Timeline 12:26,Call Received 12:26,Psap Call 12:28,Dispatched 12:29,En Route [address] [address] EMS Patient Care Report Name: RAMON RAMACHANDRAN Room #: 437-P ADM IN M.R.#: [id number] Admission: 12/26/20 Attend Phys: Asaf Rossi MD Discharge: Date of : 41 Report #: [id number] 12:32,On Scene 12:33,At Patient 12:37,BP: 157/81 M,PULSE: 77,RR: 16 R,SPO2: 95 Ox,ETCO2: ,BG: -1,PAIN: 4,GCS: 15, 12:38,Surgical Mask on Patient,Response: Unchanged 12:45,BP: 173/82 M,PULSE: 78,RR: 16 R,SPO2: 94 Ox,ETCO2: ,BG: ,PAIN: 4,GCS: 15, 12:45,Depart Scene 12:52,BP: 171/79 M,PULSE: 79,RR: 16 R,SPO2: 93 Ox,ETCO2: ,BG: ,PAIN: 4,GCS: 15, 12:55,At Destination 13:07,Call Closed Disclaimer v1.1 Copyright 2020 [employer] This EMS Care Summary contains data elements from the applicable legal record (which may be displayed differently). It is designed to provide pertinent information for the following purposes: continuity of care, clinical quality, and state data reporting. The complete legal record is available to ED staff and administrators of the receiving hospital in [employer]'s Patient Tracker. All data is provided "as is."
[~2020-12-26 13:01] MED LIST changes: +DICLOFENAC SOD100 G1 TOP; +FOLIC ACID1 MG PO; +HYDROCODON-ACE1 EAC7 PO; +LIDOPATCH1 EACH TRANSDERM; +METHOCARBAMOL500 M2 PO; +MIRALAX17 GM PO; +TYLENOL325 MG PO
[2020-12-26 13:08] VITALS: BP 129/75
[2020-12-26 15:42] LABS: ABSOLUTE NEUTROPHILS 3.6 thou/uL (1.4-8.2); BASOPHILS 0.7 % (0.0-2.0); EOSINOPHILS 3.5 % (0.0-3.0); HEMATOCRIT 39.7 % (37.0-47.0); HEMOGLOBIN 13.6 gm/dL (12.0-15.0); LYMPHOCYTES 16.1 % (24.0-44.0); MCH 33.4 pg (26.0-34.0); MCHC 34.2 g/dL (28.0-37.0); MCV 97.6 fL (80.0-100.0); MONOCYTES 11.1 % (1.0-8.0); PLATELET COUNT 249 thou/uL (150-400); POLYS 68.6 % (36.0-66.0); RBC 4.07 mil/uL (4.20-5.00); RDW 12.8 % (10.5-14.5); WBC 5.3 thou/uL (4.0-11.0)
[2020-12-26 15:46] LABS: CALCIUM 9.3 mg/dL (8.5-10.1); CREATININE 0.6 mg/dL (0.6-1.0); POTASSIUM 3.9 mmol/L (3.5-5.1)
[2020-12-26 18:39] VITALS: BP 111/76
[2020-12-26 19:21] VITALS: BP 147/78
[2020-12-26 20:26] VITALS: BP 137/87
[2020-12-27 03:00] VITALS: BP 154/79
[2020-12-27 06:03] LABS: ABSOLUTE NEUTROPHILS 3.1 thou/uL (1.4-8.2); BASOPHILS 0.8 % (0.0-2.0); EOSINOPHILS 5.4 % (0.0-3.0); HEMATOCRIT 35.7 % (37.0-47.0); HEMOGLOBIN 12.3 gm/dL (12.0-15.0); LYMPHOCYTES 21.4 % (24.0-44.0); MCH 33.6 pg (26.0-34.0); MCHC 34.4 g/dL (28.0-37.0); MCV 97.7 fL (80.0-100.0); MONOCYTES 11.8 % (1.0-8.0); PLATELET COUNT 218 thou/uL (150-400); POLYS 60.6 % (36.0-66.0); RBC 3.66 mil/uL (4.20-5.00); RDW 12.6 % (10.5-14.5); WBC 5.1 thou/uL (4.0-11.0)
[2020-12-27 06:17] LABS: CALCIUM 8.6 mg/dL (8.5-10.1); CREATININE 0.5 mg/dL (0.6-1.0); MAGNESIUM 1.6 mg/dL (1.8-2.4); POTASSIUM 3.5 mmol/L (3.5-5.1)
[2020-12-27 08:23] VITALS: BP 136/84
[2020-12-27 08:32] VITALS: BP 154/81
[2020-12-27 20:04] VITALS: BP 112/69
[2020-12-28 06:22] LABS: HEMATOCRIT 35.7 % (37.0-47.0); HEMOGLOBIN 12.2 gm/dL (12.0-15.0); MCH 33.5 pg (26.0-34.0); MCV 98.4 fL (80.0-100.0); RBC 3.63 mil/uL (4.20-5.00); RDW 12.8 % (10.5-14.5); WBC 5.9 thou/uL (4.0-11.0)
[2020-12-28 08:27] VITALS: BP 144/65
[2020-12-28 08:37] LABS: CALCIUM 8.7 mg/dL (8.5-10.1); CREATININE 0.5 mg/dL (0.6-1.0); POTASSIUM 3.5 mmol/L (3.5-5.1)
[2020-12-28 16:15] VITALS: BP 130/75
[2020-12-28 18:54] VITALS: BP 130/75
[2020-12-29 07:18] VITALS: BP 146/89
[2020-12-29 12:25] VITALS: BP 146/89
== END 2020-12-29 12:29 | DRG 517 ==
LOC: ER 13:01 → 4S 16:59 → EROBS 16:59 → 4S 18:58
PROVIDERS: Hospitalist; Nurse Practitioner; ADMIT Internal Medicine; ATTEND Internal Medicine
PROC: 0QS03ZZ Reposition Lumbar Vertebra, Percutaneous Approach (ICD-10-PCS; principal; 2020-12-27)
PROC: 0QU03JZ Supplement Lumbar Vertebra with Synthetic Substitute, Percutaneous Approach (ICD-10-PCS; principal; 2020-12-27)
DX: M48.56XA Collapsed vertebra, not elsewhere classified, lumbar region, initial encounter for fracture (principal); Z20.822 Contact with and (suspected) exposure to COVID-19; I10 Essential (primary) hypertension; M19.90 Unspecified osteoarthritis, unspecified site; G62.9 Polyneuropathy, unspecified; M54.9 Dorsalgia, unspecified; G89.29 Other chronic pain; M72.2 Plantar fascial fibromatosis; Z60.2 Problems related to living alone; R53.81 Other malaise; N39.3 Stress incontinence (female) (male); E53.8 Deficiency of other specified B group vitamins; M81.0 Age-related osteoporosis without current pathological fracture; Z85.3 Personal history of malignant neoplasm of breast; Z92.3 Personal history of irradiation; Z98.42 Cataract extraction status, left eye; Z98.41 Cataract extraction status, right eye; Z88.8 Allergy status to other drugs, medicaments and biological substances; Z87.891 Personal history of nicotine dependence
CPT/HCPCS: 10195

== ENCOUNTER 2021-02-13 12:42 | Inpatient (IN) | payer OTHER ==
[~2021-02-13] VITALS: Ht 162.6 cm; Wt 46.3 kg
--- NOTE | ~2021-02-13 | EMS ---
[address] [address] EMS Patient Care Report Name: RAMON RAMACHANDRAN Room #: REG MARANDA [place]#: [id number] Admission: 02/13/21 Attend Phys: Discharge: Date of : 41 Report #: [id number] THIS REPORT FOR: //name// Report Transmitted: 02/13/2021 15:12 EMS Care Summary [facility] MED-ACT Incident [id number] @ 02/13/2021 12:11 Incident Location [address] [place] [address] Patient RAMON RAMACHANDRAN Female, 76 Years 1945 Patient Address [address] [place] [address] Patient History Asthma,Hypertension (HTN),Back Pain (Chronic), Patient Allergies Lyrica,Gabapentin, Patient Medications Vitamin D, Cardizem, Proair, Methocarbamol, Hydrocodone, Prilosec, Atenolol, Advair, Chief Complaint lower back pain Disposition Transported No Lights/[place] Dispatch Reason Back Pain (Non-Traumatic) Transported To [facility] Narrative Arrived to find pt sitting on her couch alert and oriented. Pt stated she [facility] [address] [place] [address] EMS Patient Care Report Name: RAMON RAMACHANDRAN Room #: REG Zoë#: [id number] Admission: 02/13/21 Attend Phys: Discharge: Date of : 41 Report #: [id number] aggravated a prior back injury about 2 weeks abgo and her current pain management prescription were not effectively managing her pain. Pt contact her DR and was recommended to be transport to an ER for further evaluation of her back and further management of her pain. Pt was assisted to the stairchair and taken to the cot. Pt was lifted to the cot and placed in the position of comfort and rested without change en route to [facility] ER. Pt declined EMS fentanyl. Upon arrival to ER pt was taken to RM 3, lifted to ER bed and care transferred to staff respiratory therapist with report. Initial Vitals @12:30P: 74,SpO2: 97, @12:37P: 79,R: 18,BP: 185/82,GCS: 15,SpO2: 95,Revised Trauma: 12, @12:19P: 74,R: 18,BP: 165/93,Pain: 6/10,GCS: 15,Temp: 97.9F,SpO2: 95,Revised Trauma: 12, Impression Back Pain Timeline 12:08,Call Received 12:08,Psap Call 12:11,Dispatched 12:11,En Route 12:16,On Scene 12:18,At Patient 12:19,BP: 165/93 M,PULSE: 74,RR: 18 R,SPO2: 95 Ox,ETCO2: ,BG: ,PAIN: 6,GCS: 15, 12:28,Depart Scene 12:30,BP: / M,PULSE: 74,RR: R,SPO2: 97 Ox,ETCO2: ,BG: ,PAIN: ,GCS: , 12:37,BP: 185/82 M,PULSE: 79,RR: 18 R,SPO2: 95 Ox,ETCO2: ,BG: ,PAIN: ,GCS: 15, 12:39,At Destination 12:54,Call Closed Disclaimer v1.1 Copyright 2020 [employer] This EMS Care Summary contains data elements from the applicable legal record (which may be displayed differently). It is designed to provide pertinent information for the following purposes: continuity of care, clinical quality, and state data reporting. The complete legal record is available to ED staff and administrators of the receiving hospital in [employer]'s Patient Tracker. All data is provided "as is."
[2021-02-13] MEDS ORDERED: BIOFREEZE118 ML TOP (13:34)
[2021-02-13] MEDS ORDERED: APAP W/CODEINE1 TA2 PO (13:35)
[2021-02-13 18:23] LABS: URINE BILIRUBIN NEGATIVE (Negative); URINE BLOOD NEGATIVE (Negative); URINE CLARITY CLEAR; URINE COLOR YELLOW; URINE GLUCOSE-RANDOM* NEGATIVE (Negative); URINE KETONES 3+ (Negative); URINE LEUKOCYTES-REFLEX NEGATIVE (Negative); URINE NITRITE-REFLEX NEGATIVE (Negative); URINE PROTEIN (DIPSTICK) NEGATIVE (Negative); URINE UROBILINOGEN 0.2 E.U./dl (0.2-1.0)
[2021-02-13 18:30] LABS: URINE REDUCING SUBSTANCE NEGATIVE
[2021-02-13 22:53] LABS: ABSOLUTE NEUTROPHILS 4.2 thou/uL (1.4-8.2); BASOPHILS 0.9 % (0.0-2.0); EOSINOPHILS 4.7 % (0.0-3.0); HEMATOCRIT 38.6 % (37.0-47.0); HEMOGLOBIN 12.6 gm/dL (12.0-15.0); LYMPHOCYTES 20.2 % (24.0-44.0); MCH 31.7 pg (26.0-34.0); MCHC 32.7 g/dL (28.0-37.0); MCV 96.7 fL (80.0-100.0); MONOCYTES 12.4 % (1.0-8.0); PLATELET COUNT 323 thou/uL (150-400); POLYS 61.8 % (36.0-66.0); RBC 3.99 mil/uL (4.20-5.00); RDW 13.4 % (10.5-14.5); WBC 6.7 thou/uL (4.0-11.0)
[2021-02-13 23:03] LABS: CALCIUM 8.9 mg/dL (8.5-10.1); CREATININE 0.4 mg/dL (0.6-1.0)
[2021-02-13 23:08] LABS: ALBUMIN 2.7 g/dL (3.4-5.0); MAGNESIUM 1.5 mg/dL (1.8-2.4); TOTAL BILIRUBIN 0.3 mg/dL (0.2-1.0)
[2021-02-14 06:47] LABS: ABSOLUTE NEUTROPHILS 2.8 thou/uL (1.4-8.2); BASOPHILS 1.1 % (0.0-2.0); EOSINOPHILS 6.3 % (0.0-3.0); HEMATOCRIT 37.3 % (37.0-47.0); HEMOGLOBIN 12.5 gm/dL (12.0-15.0); MCH 32.5 pg (26.0-34.0); MCHC 33.7 g/dL (28.0-37.0); MCV 96.4 fL (80.0-100.0); MONOCYTES 13.3 % (1.0-8.0); PLATELET COUNT 289 thou/uL (150-400); POLYS 53.3 % (36.0-66.0); RBC 3.87 mil/uL (4.20-5.00); RDW 13.3 % (10.5-14.5); WBC 5.2 thou/uL (4.0-11.0)
[2021-02-14 06:52] VITALS: BP 130/59
[2021-02-14 06:55] LABS: CREATININE 0.4 mg/dL (0.6-1.0); MAGNESIUM 1.4 mg/dL (1.8-2.4); POTASSIUM 3.9 mmol/L (3.5-5.1)
[2021-02-14 07:41] VITALS: BP 146/68
[2021-02-14 08:30] VITALS: BP 161/82
--- NOTE | 2021-02-14 12:04 | NUR ---
ASSUMED PT CARE AT 0830 FROM ED. PT IS ALERT & ORIENTED X4. PT HAS IV SITE ON LFA AND R LIMB ALERT DUE TO LUMPECTOMY. PT USES WALKER. PT IS ON ROOM AIR. PT RATED PAIN 6/10 ON LOWER BACK AND GIVEN PAIN MEDICATION PER PT REQUEST. PT WILL HAVE SURGERY TOMORROW PER . LAST BM WAS YESTERDAY. FINISHED ADMISSION THIS AM. PT ON THE BED WATCHING TV, BED ON THE LOWEST POSITION, SIDE RAILS UP, CALL LIGHT WITHIN REACH. FOLLOW POC.
[2021-02-14 16:28] VITALS: BP 174/98
[2021-02-14 16:43] VITALS: BP 174/98
--- NOTE | 2021-02-14 16:44 | NUR ---
Chart reviewed and case discussed with the care team. The pt is known to cm from recent admission and dc to [facility] of OP SNF in December. She was there from 12/29 thru 01/20 using her 20 fully covered snf days. Her secondary ins does not pay her snf copay. She returned home with [facility] and is on service with them currently. They are aware she is in the hospital and can accept her for readmission if she can return directly home. She was also here in November and on 5N acute rehab until 12/01/20 when she dc'd to home with hh services. All recent admissions have been for comp fxs. She has two new ones T12 and L3 and plans in motion for khypo tomorrow. PT/OT and rehab medicine evals anticipated tomorrow. The pt lives alone in an apt with 5 steps to enter. She does have a rwalker for home use. She does not drive and relies on her siblings for support. CM to visit with the pt to discuss options to resume HH or SNF stay with copay or acute rehab pending imput from the care team post procedure. [facility] is limited on bed availability this week and it is unclear if pt will qualify for another acute rehab stay. Will follow.
[2021-02-14 19:41] VITALS: BP 141/82
--- NOTE | 2021-02-15 01:24 | NUR ---
ASSESSMENT COMPLETED. PT C/O BACK PAIN, TOO MUCH THAT SHE CANT LAY FLAT AT ALL, SHE IS ALSO USING BED SANTANA AND OBSERVED TO BE VOIDING ADEQUATELY. AFEBRILE. NPO AFTER MIDNOC WITH KHYPHOPLASTY TOMORROW.
[2021-02-15 05:29] VITALS: BP 146/86
[2021-02-15 08:22] VITALS: BP 162/89
--- NOTE | 2021-02-15 10:10 | NUR ---
ASSUMED PT CARE THIS AM. PT IS ALERT & ORIENTED X4. PT HAS IV SITE ON LFA RUNNING NS @75ML/HR AND HAS R LIMB ALERT. PT USES WALKER AND BEDPAN. PT HAS BEEN NPO SINCE MIDNIGHT AND WILL HAVE KYPHOPLASTY TODAY. PT C/O OF PAIN ON THE LOWER BACK AND GIVEN PAIN MEDICATION PER PT REQUEST. NOTED SLIGHT ELEVATED BP AND GIVEN MORNING BP MEDS. PT IS ON ROOM AIR. WILL CONTINUE TO MONITOR PT. FOLLOW POC.
--- NOTE | 2021-02-15 10:41 | NUR ---
Please get a current weight to verify degree of weight loss, if any. Showing 23% loss since Dec.
[2021-02-15 12:01] VITALS: BP 150/84
--- NOTE | 2021-02-15 14:11 | NUR ---
Pt had kyphoplasty today and therapy evals pending release from bed rest this afternoon. Rehab medicine has visited with her. Pt will qualify for another 5N acute rehab stay pending her therapy evals. They will relook at her tomorrow and check their bed availability.
[2021-02-15 15:59] VITALS: BP 143/79
--- NOTE | 2021-02-16 02:22 | NUR ---
PT ABLE TO GET UP AND USE BSC, REQUIRES SBA. VOIDING ADEQUATELY, HAD A BM, PAIN MANAGED WITH HYDROCODONE. NO FURTHER CONCERNS. PLAN FOR REHAB TOMORROW.
[2021-02-16 07:21] VITALS: BP 165/83
[2021-02-16 08:52] VITALS: BP 165/83
--- NOTE | 2021-02-16 13:15 | NUR ---
DISCHARGE NOTE: SW reviewed chart and spoke with nursing and attending physician. Pt is s/p kyphoplasty. Pt is medically stable to discharge to 5N today. SW confirmed with 5N rehabilitation engineer, that they will be able to accept pt today. SW met with pt at bedside to provide update and discuss discharge plan. Pt is aware and in agreement with discharge plan. Pt was recently on 5N and is familiar with weekly team conferences. Pt to discharge to 5N when a bed is available, later today. Rehab CM to follow and assist as needed with discharge planning.
[2021-02-16] MEDS ORDERED: HYDROCODON-ACE1 EAC7 PO (14:46)
[2021-02-16] MEDS ORDERED: MAGNESIUM400 MG PO (14:46)
--- NOTE | 2021-02-16 15:44 | NUR ---
ASSUMED PT CARE AROUND 0700. PT A X O X 4. ON RA, STAND BY ASST. IV LEFT AC/SL. HAD 2 BM TODAY. RT LIMB ALERT. PAIN PARTIALLY CONTROLLED BY PAIN MEDS. CALL LIGHT IN REACH, WILL CALL APPROPRIATELY. PATIENT GETTING DC'D TO INPATIENT REHAB (5N). REPORT GIVEN SAMIA BUTCHER RN.
== END 2021-02-16 16:06 | DRG 515 ==
LOC: ER 12:42 → 4S 15:02 → EROBS 15:02 → 4S 02-14 08:02
PROVIDERS: Nurse Practitioner; ADMIT Hospitalist; ATTEND Hospitalist
PROC: 0QS03ZZ Reposition Lumbar Vertebra, Percutaneous Approach (ICD-10-PCS; principal; 2021-02-15)
PROC: 0PS43ZZ Reposition Thoracic Vertebra, Percutaneous Approach (ICD-10-PCS; principal; 2021-02-15)
PROC: 0QU03JZ Supplement Lumbar Vertebra with Synthetic Substitute, Percutaneous Approach (ICD-10-PCS; principal; 2021-02-15)
PROC: 0PU43JZ Supplement Thoracic Vertebra with Synthetic Substitute, Percutaneous Approach (ICD-10-PCS; principal; 2021-02-15)
DX: M48.54XA Collapsed vertebra, not elsewhere classified, thoracic region, initial encounter for fracture (principal); E43 Unspecified severe protein-calorie malnutrition; Z68.1 Body mass index [BMI] 19.9 or less, adult; M48.56XA Collapsed vertebra, not elsewhere classified, lumbar region, initial encounter for fracture; E83.42 Hypomagnesemia; Z20.822 Contact with and (suspected) exposure to COVID-19; G89.29 Other chronic pain; M54.9 Dorsalgia, unspecified; I10 Essential (primary) hypertension; M19.90 Unspecified osteoarthritis, unspecified site; M72.2 Plantar fascial fibromatosis; G62.9 Polyneuropathy, unspecified; R53.81 Other malaise; K21.9 Gastro-esophageal reflux disease without esophagitis; N39.3 Stress incontinence (female) (male); R26.89 Other abnormalities of gait and mobility; Z85.3 Personal history of malignant neoplasm of breast; Z88.8 Allergy status to other drugs, medicaments and biological substances; Z98.42 Cataract extraction status, left eye; Z98.41 Cataract extraction status, right eye; Z92.3 Personal history of irradiation; Z79.899 Other long term (current) drug therapy; Z28.21 Immunization not carried out because of patient refusal
CPT/HCPCS: 10102

== ENCOUNTER 2021-02-16 11:50 | Inpatient (IN) | payer OTHER ==
[~2021-02-16] VITALS: Ht 162.6 cm; Wt 46.5 kg
[~2021-02-16 11:50] MED LIST changes: +APAP W/CODEINE1 TA2 PO; +BIOFREEZE118 ML TOP
[2021-02-16] MEDS ORDERED: HYDROCODON-ACE1 EAC7 PO (14:46)
[2021-02-16] MEDS ORDERED: MAGNESIUM400 MG PO (14:46)
--- NOTE | 2021-02-16 16:12 | NUR ---
PT ARRIVED TO ROOM VIA BED. PT WANTING PAIN MED OF HYDROCODONE AT 1700. NO PAIN MED WAS ON THE MAR, NEEDED TO CALL AND GET ORDERS FOR NARCOTIC. CALLED MARGARET SHEET METAL ASSEMBLER AND RIVETER FOR ORDERS. PT HAS OWN ADVAIR AT BEDSIDE. PT STATED PAIN WAS 8 ON 1-10 SCALE. PT HAS X2 BANDAID TO BACK FROM KYPHOPLASTY YESTERDAY. PT LUNGS CLEAR AND ON ROOM AIR. PT HAS LOST SOME WT SINCE LAST ADMIT, DOWN 102.7.
[2021-02-16 16:32] VITALS: BP 162/78
--- NOTE | 2021-02-16 16:36 | NUR ---
New to acute rehab this afternoon. Will cont following as needed for dc needs.
--- NOTE | 2021-02-16 18:00 | NUR ---
ADM NORCO 5MG PO FOR PAIN TO BACK OF 6 ON 1-10 SCALE. PT UP TO BSC X2 SINCE ADMIT. PT HAD SOFT BM MED SIZE.
[2021-02-16 19:55] VITALS: BP 145/82
--- NOTE | 2021-02-17 02:52 | NUR ---
PT CARE ASSUMED WITH PT IN BED.PT IS A/O X4.PT IS UP WITH X1 ASSIST TO THE BSC.PT IS ON ROOM AIR.PT C/O PAIN ON BACK AND PAIN MANAGED WITH NORCO PRN WITH RELIEF.WILL CONTINUE TO MONITOR
[2021-02-17 05:39] LABS: HEMOGLOBIN 11.7 gm/dL (12.0-15.0); MCH 32.2 pg (26.0-34.0); MCHC 33.5 g/dL (28.0-37.0); MCV 95.9 fL (80.0-100.0); RBC 3.65 mil/uL (4.20-5.00); RDW 13.5 % (10.5-14.5); WBC 5.4 thou/uL (4.0-11.0)
[2021-02-17 05:45] LABS: CALCIUM 8.9 mg/dL (8.5-10.1); CREATININE 0.4 mg/dL (0.6-1.0); POTASSIUM 3.3 mmol/L (3.5-5.1)
[2021-02-17 06:20] LABS: FOLIC ACID 11.6 ng/mL (8.6-58.9)
[2021-02-17 08:30] VITALS: BP 136/66
--- NOTE | 2021-02-17 17:26 | NUR ---
Pt remained safe and comfortable, pain controlled with an increase of hydrocodone from 5 mg to 10 mg QID, adequate appetite, Pt was able to move to the restroom with SBA and walker, mood is adequate, very pleasant, safety precaution applied, hourly rounds as scheduled and as needed, Pt remained in bed mostly watching TV , K replaced per oder, no new concerns.
[2021-02-17 19:27] VITALS: BP 153/92
--- NOTE | 2021-02-18 00:21 | NUR ---
PT ALERT AND ORIENTED X 4. UP TO BSC WITH ASSIST X 1. C/O PAIN IN HER BACK. HYDROCODONE GIVEN AT HS. PT TAKES MEDS WITH WATER WITHOUT DIFFICULTY. BED ALARM ON FOR SAFETY. PT APPEARS TO BE SLEEPING ON HOURLY ROUNDS.
[2021-02-18 07:38] VITALS: BP 144/81
--- NOTE | 2021-02-18 18:21 | NUR ---
Assumed Pt care at shift change. A/O x4, takes pills whole with liquids, c/o pain but controlled w/ analgesics as per order, SBA w/1 , using walker, all fall precaution maintained, on RA, labs reviewed and no concerns noticed, Pt appears comfortable; at the end of shift Pt was not happy with the provider change of pain meds schedule. Provider paged at [phone], pending response; adequate appetite, I&O satisfactory, Sx site in the back w/o dressing and and good healing process, afebrile, and current plan of care to to be cont'd.
[2021-02-18 20:09] VITALS: BP 144/84
--- NOTE | 2021-02-19 04:56 | NUR ---
02-18-21 CARE TRANSFERRED 1914. PT AAOX4, VSS, RR EVEN AND NONLABORED ON RA. PT HAD NO DIFFICULTIES MEDICATION WHOLE WITH WATER. PT CONCERNED ABOUT THE REDUCATION OF PAIN MEDICATION. PT HAS BEEN PLESANT, CALM AND COOPERATIVE THROUGHOUT SHIFT. PER SHIFT REPORT PT DRESSING WAS REMOVED AND LEFT OPEN TO AIR. OF NOTE, IV L. BAUM P/C/I. BED ALARM ON FOR PT SAFETY.
[2021-02-19 07:46] VITALS: BP 123/76
[2021-02-19 20:42] VITALS: BP 148/80
--- NOTE | 2021-02-20 00:07 | NUR ---
PT ALERT AND ORIENTED X 4. UP TO BSC WITH ASSIST X 1. PT C/O PAIN IN HER BACK. HYDROCODONE AND ROBAXIN GIVEN AT HS. PT DID NOT WANT TO TAKE TRAZADONE WITH BOTH OF THOSE MEDS. STATED SHE WOULD CALL FOR SLEEPING PILL LATER IF SHE NEEDED IT. PT DID NOT CALL FOR MED. PT APPEARS TO BE SLEEPING ON HOURLY ROUNDS. BED ALARM ON FOR SAFETY.
[2021-02-20 07:15] VITALS: BP 144/74
--- NOTE | 2021-02-20 12:48 | NUR ---
Team meeting, recommendation: min assist with rollator walker. 03/01 dc with hh ( pt, ot, nursing). No dme.
--- NOTE | 2021-02-20 19:36 | NUR ---
PT C/O PAIN TODAY AFTER THERAPIES. PAIN USUALLY WORSE IN LATE AFTERNOONS. PO PAIN PILLS GIVEN WITH STATED FAIR RELIEF. PT TOLERATING REGULAR DIET. GAIT IS STEADY WITH WALKER AND SBA.
[2021-02-20 19:56] VITALS: BP 127/71
--- NOTE | 2021-02-21 03:06 | NUR ---
ASSUMED CARE AT 1900 OF 02/20. PATIENT IS A&OX4. REPORTS PAIN IN LOWER BACK, PRN HYDROCODONE AND SCHEDULED ROBAXIN ADMINISTERED TO MANAGE PAIN. MELATONIN ADMINISTERED AT HS. PATIENT IS SLEEPING DURING HOURLY ROUNDS. STAND BY ASSIST WITH TRANSFER TO BSC. FALL PRECAUTIONS IN PLACE, CALL LIGHT WITHIN REACH. WILL CONTINUE TO MONITOR.
[2021-02-21 07:15] VITALS: BP 149/80
--- NOTE | 2021-02-21 08:00 | NUR ---
PT LYING IN BED AND REQUESTING PAIN FOR HER BACK. PT STATED HER PAIN IS 6 ON 1-10 SCALE. PT STATED PAIN IS A PRESSURE TO LOWER BACK. PT STATED SHE HAS ARTHRITIS TO ELBOWS AND ARE SWOLLEN SLIGHTLY. PT UP TO BSC AND VOIDED AND HAD A MED BM. PT LUNGS CLEAR.
--- NOTE | 2021-02-21 08:01 | NUR ---
ADM HYDROCODONE 10MG PO FOR PAIN TO BACK.
--- NOTE | 2021-02-21 12:15 | NUR ---
PT REQUESTING PAIN MEDICATION. ADM HYDROCODONE 10MG PO FOR PAIN TO BACK OF 6 ON 1-10 SCALE.
[2021-02-21 19:54] VITALS: BP 139/72
--- NOTE | 2021-02-22 03:28 | NUR ---
ASSUMED CARE AT 1900 OF 02/21. PATIENT IS A&OX4. DENIES SHORTNESS OF BREATH, REPORTS LOWER BACK PAIN. PAIN MANAGED WITH PRN PAIN MEDICATION AND SCHEDULED MUSCLE RELAXER. STAND BY ASSISST WITH TRANSFERS TO [facility], TO VOID LARGE AMOUNT OF YELLOW URINE. FALL PRECAUTIONS IN PLACE, CALL LIGHT WITHIN REACH. WILL CONTINUE TO MONITOR.
[2021-02-22 08:00] VITALS: BP 112/65
[2021-02-22 19:52] VITALS: BP 123/69
--- NOTE | 2021-02-23 00:15 | NUR ---
PT ALERT AND ORIENTED X 4. UP TO BSC WITH ASSIST X 1 WITHOUT DIFFICULTY. PT TAKES MEDS WITH WATER WITHOUT DIFFICULTY. PT C/O PAIN IN HER BACK. HYDROCODONE GIVEN ORDERED. BED ALARM ON FOR SAFETY. PT APPEARS TO BE SLEEPING ON HOURLY ROUNDS.
[2021-02-23 08:00] VITALS: BP 123/94
--- NOTE | 2021-02-23 08:50 | NUR ---
PT SITTING UP IN THE CHAIR FOR BREAKFAST. PT LUNGS CLEAR. PT STATED SHE STILL HAS SOME PAIN TO LOWER BACK OF 4 ON 1-10 SCALE. PT UP WITH WALKER STAND-BY ASSIST. PT TAKES MEDS WHOLE WITH WATER. PT IS VERY CHEERFUL AND SOCIAL.
--- NOTE | 2021-02-23 10:09 | NUR ---
Please obtain current weight.
--- NOTE | 2021-02-23 12:40 | NUR ---
ADM HYDROCODONE 10MG PO FOR PAIN TO LOWER BACK OF 6 ON 1-10 SCALE.
--- NOTE | 2021-02-23 17:36 | NUR ---
ADM HYDROCODONE 10MG PO FOR PAIN TO BACK OF 6 ON 1-10 SCALE. PT REFUSED MIRALAX THIS MARCELLUS.
[2021-02-23 19:45] VITALS: BP 130/72
--- NOTE | 2021-02-24 00:38 | NUR ---
PT ALERT AND ORIENTED X 4. UP TO BSC WITH ASSIST X 1 WITHOUT DIFFICULTY. PT C/O PAIN IN HER BACK. HYDROCODONE GIVEN ORDERED. BED ALARM ON FOR SAFETY. PT APPEARS TO BE SLEEPING ON HOURLY ROUNDS.
[2021-02-24 05:38] LABS: ABSOLUTE NEUTROPHILS 2.7 thou/uL (1.4-8.2); EOSINOPHILS 6.5 % (0.0-3.0); HEMATOCRIT 34.8 % (37.0-47.0); HEMOGLOBIN 11.9 gm/dL (12.0-15.0); LYMPHOCYTES 26.8 % (24.0-44.0); MCH 32.8 pg (26.0-34.0); MCHC 34.2 g/dL (28.0-37.0); MCV 96.1 fL (80.0-100.0); MONOCYTES 13.6 % (1.0-8.0); PLATELET COUNT 413 thou/uL (150-400); POLYS 52.1 % (36.0-66.0); RBC 3.63 mil/uL (4.20-5.00); RDW 13.2 % (10.5-14.5); WBC 5.1 thou/uL (4.0-11.0)
[2021-02-24 05:54] LABS: CALCIUM 9.3 mg/dL (8.5-10.1); CREATININE 0.5 mg/dL (0.6-1.0); MAGNESIUM 1.9 mg/dL (1.8-2.4); POTASSIUM 4.1 mmol/L (3.5-5.1)
[2021-02-24 08:00] VITALS: BP 121/62
--- NOTE | 2021-02-24 09:23 | NUR ---
ASSUSMED CARE AT 0700. PATIENT IS ALERT AND ORIENTED X4. PATIENT GARCIA'S, REFUSED LIDOCAINE PATCH. LUNGS ARE CLEAR AND DEMINISHED. ABD IS SOFT WITH BSXR4. UP TO THE BSC WITH SBA AND GAIT BELT TO VOID CLAUDE COLORED URINE. FALL AND SAFETY PROTOCOLS IN PLACE. DENIES PAIN AT THIS TIME. CONTINUES TO PROGRESS TOWARDS D/C GOALS. WILL CONTINUE TO MONITER.
[2021-02-24 19:39] VITALS: BP 122/63
--- NOTE | 2021-02-25 02:26 | NUR ---
assumed care approx 1900 evening 02/24. pt sitting up in bed at change of shift resting and watching tv. pt alert and oriented x4, pleasant and cooperative. pt up to bsc to void, no problems. pt took hs meds with water tolerating well. pt appears to be sleeping soundly. bed alarm on and call light in reach. will continue to monitor.
[2021-02-25 07:15] VITALS: BP 145/82
--- NOTE | 2021-02-25 16:35 | NUR ---
Assumed care to pt at shift change, calm and cooperative, A/O x 4, takes pills whole with water, pain controlled , all meds given as scheduled, Up with 1A, On RA, afebrile, seems to be comfortable and safe, all safety precautions applied, VSS, labs reviewed, high zhang's position in bed mostly during the day, I/O satisfactory, no other concerns
[2021-02-25 19:27] VITALS: BP 112/78
--- NOTE | 2021-02-26 00:07 | NUR ---
ASSUMED CARE AT 1900 OF 02/25. PATIENT IS A&OX4, DENIES SHORTNESS OF BREATH. REPORTS LOWER BACK PAIN, MANAGED WITH PRN HYDROCODONE AND SCHEDULED MUSCLE RELAXER. STAND BY ASSIST WITH TRANSFERS TO BED SIDE COMMODE. FALL PRECAUTIONS IN PLACE, CALL LIGHT WITHIN REACH. WILL CONTINUE TO MONITOR.
--- NOTE | 2021-02-26 17:01 | NUR ---
Assumed pt care at 0700. Pt was alert and oriented x4. Vss. Calm, pleasant cooperative with care. C/O back pain. Managed with lidocaine patch, PRN hydrocodone and scheduled muscle relaxer. Stand by assist with transfer and care. Took meds whole with thin liquid, no difficulty noted. AMbulates with a walker. Fall precaution in place. Call light at reach. Pt is currently in her bed relaxing. Will continue to monitor.
[2021-02-26 19:27] VITALS: BP 130/73
--- NOTE | 2021-02-27 01:04 | NUR ---
ASSUMED CARE OF PT AT 1925 ON 02/26/21. PT IS A&OX4. IS ON ROOM AIR. IS STABLE. IS ABLE TO REPOSITION SELF IN BED. REPORTS PAIN IN LOWER BACK THAT IS BEING MANAGED WITH ORAL PAIN BEDS & OTHER THERAPUETIC TECHNIQUES. LODOCAINE PACTH REMOVED. BACK PRECAUTIONS CONTINUED. IS UP TO BSC WITH TOUCH ASSIST, GB. FALL PRECAUTIONS & HOURLY ROUNDING CONTINUED THIS SHIFT. LABS & VITALS REVIEWED. WILL CONTINUE TO MONITOR. CALL LIGHT WITHIN REACH.
[2021-02-27 07:41] VITALS: BP 124/75
[2021-02-27 08:00] VITALS: BP 124/75
--- NOTE | 2021-02-27 12:19 | NUR ---
FULL RANGE AFFECT NOTED DURING AM ASSESSMENT-1;1 WITH NURSING STAFF. DOES REPORT LOW BACK PAIN RATED AN 8 ON 1-10 SCALE AND VERBALIZES WORSENING OF PAIN FOLLOWING PT SESSION YESTERDAY. "I AM GOING TO ASK THE DR FOR AN X-RAY BEFORE I LEAVE ON FRIDAY BECAUSE I THINK I MAY HAVE MESSED SOMETHING UP"REQUESTED AND RECEIVED NORCO 10/325MG PO PRN AT 0830 FOR BACK PAIN WITH REPORTED IMPROVEMENT RATING BACK PAIN A 1 UPON REASSESSMENT AT 1000. APPETITE FAIR. TO BSC WITH SBA X1-VOIDING PER BSC Q 2-4 HOURS-NO INCONTINENCE SO FAR THIS SHIFT. IS ORIENTED X3 TODAY AND APPEARS AWARE OF MOBILITY RESTRICTIONS-USES CALL LIGHT APPROPRIATLY PRIOR TO GETTING OUT OF BED.
--- NOTE | 2021-02-27 14:02 | NUR ---
team meeting, reccomendation: te ag dc 03/01 [facility] (pt, ot, nurse) , No DME needs.
--- NOTE | 2021-02-27 17:58 | NUR ---
PATIENT ASKED NURSE JACK FRAME TENDER ABOUT THE MUSCLE SPASMS DURING DISCUSSION ABOUT DISHCARGE. SHE STATED, "I AM TERRIFIED THAT I MAY HAVE HAD ANOTHER COMPRESSION FRACTURE. i JUST WANT SOMEONE TO TAKE AN XRAY TO MAKE SURE THAT EVERYTHING IS OK IN THERE BEFORE I GO HOME." DISCUSSED OTHER CAUSES FOR THE MUSCLE SPASMS, AND PT WAS RECEPTIVE TO THESE POSSIBLE EXPLANATIONS, BUT STATED, "I JUST WANT TO MAKE SURE. AND MY SISTER WANTS TO BE SURE WELL." THIS CONCERN WAS MESSAGED TO DR. PIKE, WHO WILL DISCUSS WITH HER IN THE MORNING.
[2021-02-27 19:50] VITALS: BP 133/63
--- NOTE | 2021-02-28 00:30 | NUR ---
ASSUMED CARE AT 1900 OF 02/27. PATIENT IS A&OX4, REPORTS LOWER BACK PAIN, WHICH IS MANAGED WITH PRN PAIN MEDICATION AND HEATING PAD. STAND BY ASSIST WITH TRANSFERS TO [facility] TO VOID CLEAR YELLOW URINE. ABLE TO REPOSITION SELF IN BED. FALL PRECAUTIONS IN PLACE, CALL LIGHT WITHIN REACH. WILL CONTINUE TO MONITOR.
[2021-02-28 08:00] VITALS: BP 131/70
--- NOTE | 2021-02-28 11:58 | NUR ---
PATIENT IS ALERT, AND ORIENTED X 3-4 ABLE TO VOICE NEED. LCTA, RESP EVEN/UNLABORED, NO SOA/CYANOSIS NOTED. BS+X4, ABD SOFT, NON-TENDER TO TOUCH. PATIENT HAD THORACIC, AND LUMBER X-RAYS DONE THIS MORNING WITH IN THE CHART. PATIENT SAD, AND EMOTIONAL ABOUT THE X-RAY RESULTS, SHE IS PLACED ON NPO STATUS AT NOON TILL DR. EARL SEES HER THIS AFTERNOON. PATIENT NOTIFIED, AND SHE IS IN AGREEMENT. PATIENT'S CONCERN TODAY IS TO GET RID OF THE SPASM IN HER BACK, GOAL IS TO BE MORE ACTIVE. PRN HYDROCODONE GIVEN THIS MORNING FOR BACK PAIN OF 6/10, WHEN REASSESSED, PAIN DECREASED TO 1/0. AFFECT IS SAD, MOOD IS EUTHYMIC. NO SIGN OF ACUTE DISTRESS NOTED, CALL LIGHT IN REACH, WILL MONITOR FOR SAFETY.
[2021-02-28] MEDS ORDERED: MAGNESIUM400 MG PO (17:55)
[2021-02-28 19:24] VITALS: BP 143/67
--- NOTE | 2021-03-01 05:02 | NUR ---
ASSUMED CARE AT 1915 OF 02/28. PATIENT IS A&OX4, APPEARS ANXIOUS AND DISCOURAGED DUE TO DISCOVERY OF NEW COMPRESSION FRACTURE. THERAPUTIC COMMUNICATION IMPLEMENTED, AND PATIENT IS PROVIDED WITH SPACE AND TIME TO EXPRESS FEELINGS. CONTINUES TO REPORT PAIN IN LOWER BACK, REPORTS PAIN SHOOTS UP WHEN SHE IS MOVING, BUT GOES BACK TO 6/10 WHEN SHE IS AT REST. PRN PAIN MEDICATION ADMINISTERED AND HEATING PAD USED TO MANAGE PAIN. SNACKS PROVIDED AT HS BEFORE BECOMING NPO AT MIDNIGHT, DUE TO SCHEDULED KYPHOPLASTY IN AM. PATIENT HAS BEEN SLEEPING ON AND OFF THROUGOUT SHIFT. MINIMAL ASSIST WITH TRANSFER TO [facility] TO VOID. FALL PRECAUTIONS IN PLACE, CALL LIGHT WITHIN REACH. WILL CONTINUE TO MONITOR.
[2021-03-01 07:15] VITALS: BP 134/75
--- NOTE | 2021-03-01 08:01 | NUR ---
ASSUMED CARE AT 0700. PATIENT IS ALERT AND ORIENTED X4. PATIENT GARCIA'S, REALTY SPECIALIST ARE EQUAL. LUNGS ARE CLEAR AND DEMINISHED . ABD IS SOFT WITH BSX4. NPO FOR KYPHOPLASTY WITH I.R. UP TO THE BSC TO VOID CLAUDE COLORED URINE. FALL AND SAFETY PROTOCOLS IN PLACE. DENIES PAIN AT THIS TIME. NO IV ACCESS. THERAPY IS ON HOLD UNTIL SHE RETURNS TO 5N. WILL CONTINUE TO MONITER.
[2021-03-01 12:08] VITALS: BP 134/75
--- NOTE | 2021-03-01 14:00 | NUR ---
PATIENT LEFT IN BED TO I.R. FOR KYPHOPLASTY OF L1, THEN PATIENT WILL BE ADMITTED TO 4S TILL TOMMAROW AND THEN COME BACK UP TO 514.
--- NOTE | 2021-03-02 11:40 | PLAN ---
[facility] [place] [address] REHAB UNIT PLAN OF CARE Name: RAMON RAMACHANDRAN Room #: 514-P [facility] IN M.R.#: [id number] Admission: 02/16/21 Attend Phys: Kvng Rodriguez MD Discharge: 03/01/21 Date of : 41 Report #: [id number] THIS REPORT FOR: cc: Abisai Gasca,Abisai Palomino,Kvng Kerr MD ~ DATE OF SERVICE: 02/19/2021 PROGRESS NOTE/OVERALL PLAN OF CARE HISTORY OF PRESENT ILLNESS: The patient is seen back today in followup. She is in no distress. She notes that the pain is overall improved after the kyphoplasties. These occurred both at L3 and T12. She is moving both upper extremities without obvious weakness. Lower extremities, no focal calf swelling. Tone appeared to be intact. Transfers are min assist with gait, min assist 150 feet with a 4-wheeled walker. In occupational therapy, lower body dressing is mod assist with upper body dressing min assist. ASSESSMENT: 1. L3 and T12 compression fracture, status post kyphoplasty 02/15/2021. 2. Gait instability with lower extremity weakness. 3. Hypomagnesium. 4. Peripheral neuropathy, premorbid. 5. Prior history of plantar fasciitis. 6. History of L2, L4, L5 compression, status post vertebroplasty in the past. 7. Asthma. 8. Hypertension. 9. Gastroesophageal reflux disease. 10. History of left hip fracture. PLAN: The overall plan of care is based on the pre-admission screen and information garnered from therapy assessments. 1. Estimated length of stay is probably 10-14 days. 2. Medical prognosis is reasonably good. 3. Anticipated interventions include the interdisciplinary acute inpatient rehabilitation program. 4. Anticipated functional outcomes would be for the patient to become modified independent with transfers, mobility and ADLs, so that she can hopefully return back to her prior living situation. 5. Discharge destination would be back to her apartment alone. 6. Expected therapy by discipline includes PT and OT one and one-half hours per day each 5 days a week throughout the duration of the acute inpatient rehabilitation stay. ADDENDUM: The patient's prognosis for significant practical improvement within a reasonable period of time appears good. Given the patient's complex medical [facility] [address] [place] [address] REHAB UNIT PLAN OF CARE Name: RAMON RAMACHANDRAN Room #: 514-P [facility] IN ..#: [id number] Admission: 02/16/21 Attend Phys: Kvng Rodriguez MD Discharge: 03/01/21 Date of : 41 Report #: [id number] condition and risk of further medical complication, rehabilitation services could not be safely provided at the lower level of care such as a custodial facility. <ELECTRONICALLY SIGNED> By: Kvng Rodriguez MD 03/02/21 1140 [id number] Kvng Rodriguez MD /kaycee
== END 2021-03-01 13:54 | disposition admitted as inpatient to this hospital (09) | DRG 516 ==
PROVIDERS: Nurse Practitioner; Nurse Practitioner Family; ADMIT Physical Medicine & Rehabilitation; ATTEND Physical Medicine & Rehabilitation
PROC: 0QU03JZ Supplement Lumbar Vertebra with Synthetic Substitute, Percutaneous Approach (ICD-10-PCS; principal; 2021-03-01)
PROC: 0QS03ZZ Reposition Lumbar Vertebra, Percutaneous Approach (ICD-10-PCS; principal; 2021-03-01)
DX: S32.039A Unspecified fracture of third lumbar vertebra, initial encounter for closed fracture (principal); S22.089A Unspecified fracture of T11-T12 vertebra, initial encounter for closed fracture; E46 Unspecified protein-calorie malnutrition; Z68.1 Body mass index [BMI] 19.9 or less, adult; R53.81 Other malaise; I10 Essential (primary) hypertension; G62.9 Polyneuropathy, unspecified; R26.89 Other abnormalities of gait and mobility; J45.909 Unspecified asthma, uncomplicated; K21.9 Gastro-esophageal reflux disease without esophagitis; E83.42 Hypomagnesemia; M72.2 Plantar fascial fibromatosis; M19.022 Primary osteoarthritis, left elbow; M19.021 Primary osteoarthritis, right elbow; G89.29 Other chronic pain; M54.9 Dorsalgia, unspecified; Z60.2 Problems related to living alone; N39.3 Stress incontinence (female) (male); M81.0 Age-related osteoporosis without current pathological fracture; W18.39XA Other fall on same level, initial encounter; Y93.89 Activity, other specified; Z88.8 Allergy status to other drugs, medicaments and biological substances; Z85.3 Personal history of malignant neoplasm of breast; Z28.21 Immunization not carried out because of patient refusal; Y92.89 Other specified places as the place of occurrence of the external cause; Y99.8 Other external cause status
CPT/HCPCS: 10112

== ENCOUNTER 2021-03-01 03:33 | Inpatient (IN) | payer OTHER ==
[~2021-03-01] VITALS: Ht 162.6 cm; Wt 41.7 kg
[~2021-03-01 03:33] MED LIST changes: +MAGNESIUM400 MG PO
--- NOTE | 2021-03-01 09:55 | NUR ---
Cm notified that she going to have kyphoplasty today. Dc on hold r/t procedure. Possible will be ready for dc next week.
[2021-03-01 15:16] VITALS: BP 134/80
--- NOTE | 2021-03-01 15:53 | NUR ---
Patient arrived to 4S via bed. L1 KYPHOPLASY TODAY. A/O X4. ROOM AIR. BEDBOUND FOR 1 HOUR THEN SHE CAN GET OUT OF BED WITH ASSIST. BACK PAIN 11/11. NORCO GIVEN FOR PAIN. LEFT UPPER DOUBLE LUMEN PIV. SALINE LOCKED. LAST BM 02/27/21. HERE FOR OBSERVATION AND WILL DC BACK TO [facility] TOMORROW.
[2021-03-01 20:47] VITALS: BP 120/72
--- NOTE | 2021-03-02 03:51 | NUR ---
ASSUMED CARE OF PT AT 1900. BEDSIDE REPORT RECIEVED. SHAQ ASSESSMENT COMPLETE. PT C/O LOW BACK PAIN, PRN NORCO GIVEN INDICATED. PROVIDED EDUCATION ON ALTERNATIVE NON PHARMACOLOGICAL PAIN MANAGEMENT INTERVENTIONS. JESSICA MAE PIV, CDI, PATENT, AND SECURED C TEGADERM, SALIONE LOCKED. ASSISTED TO PT TO BSC C WALKER AND GAIT BELT C MINIMAL ASSISTANCE. LINEN CHANGED AND BED STGRAIGHTENED UP. REFILLED WATER. HOURLY ROUNDING TO CONTINE. CALL LIGHT IN REACH,
--- NOTE | 2021-03-02 05:52 | NUR ---
I CONCUR WITH THE NOTE AND ASSESSMENT BY Anna PEREZ LPN
[2021-03-02 06:13] LABS: ABSOLUTE NEUTROPHILS 3.3 thou/uL (1.4-8.2); EOSINOPHILS 8.1 % (0.0-3.0); HEMOGLOBIN 12.6 gm/dL (12.0-15.0); LYMPHOCYTES 21.4 % (24.0-44.0); MCHC 33.3 g/dL (28.0-37.0); MCV 96.1 fL (80.0-100.0); MONOCYTES 11.4 % (1.0-8.0); PLATELET COUNT 425 thou/uL (150-400); POLYS 58.1 % (36.0-66.0); RBC 3.95 mil/uL (4.20-5.00); WBC 5.7 thou/uL (4.0-11.0)
[2021-03-02 06:46] LABS: CALCIUM 9.1 mg/dL (8.5-10.1); CREATININE 0.5 mg/dL (0.6-1.0); MAGNESIUM 1.8 mg/dL (1.8-2.4); POTASSIUM 3.9 mmol/L (3.5-5.1)
--- NOTE | 2021-03-02 13:11 | NUR ---
INITIAL ASSESSMENT: JESSICA reviewed chart and spoke with nursing and attending physician. Pt was admitted to 4S from for kyphoplasty. Pt with L1 compression fx. JESSICA discussed case with rehabilitation technician, who states they are planning on admitting pt back to tomorrow. Neuro surgery consulted for possible back brace. rehab physician also consulted. JESSICA met with pt at bedside. introduced role of SW. Pt is alert/orientated x 4 and is known to SW from previous hospitalization. Plan is for pt to discharge home with [facility] when medically stable. Pt is agreeable with plan to discharge to tomorrow. SW is following to assist as needed with discharge planning.
--- NOTE | 2021-03-02 13:17 | NUR ---
pt up in bed, call light with in reach, no pain or discomfort, requested her book from [facility], [facility] to obtain it for her. No concerns at this time.
[2021-03-02 19:16] VITALS: BP 152/77
--- NOTE | 2021-03-02 23:03 | NUR ---
ASSESSMENT COMPLETED. PT ASSITED TO THE BSC, MOVES SLOWLY BUT WELL. MINI USED Q4HRS AND SHE REPORTS PAIN RELIEF. BINDER OFF AFTER 4 HRS.DENIES NAY FURTHER ISSUES.
[2021-03-03 07:22] VITALS: BP 139/77
[2021-03-03 09:54] LABS: URINE BILIRUBIN NEGATIVE (Negative); URINE BLOOD NEGATIVE (Negative); URINE CLARITY CLEAR; URINE COLOR YELLOW; URINE GLUCOSE-RANDOM* NEGATIVE (Negative); URINE KETONES 1+ (Negative); URINE LEUKOCYTES-REFLEX NEGATIVE (Negative); URINE NITRITE-REFLEX NEGATIVE (Negative); URINE PROTEIN (DIPSTICK) NEGATIVE (Negative); URINE UROBILINOGEN 0.2 E.U./dl (0.2-1.0)
--- NOTE | 2021-03-03 11:20 | NUR ---
ASSUMED PT CARE THIS AM. PT IS ALERT & ORIENTED X4. PT HAS IV SITE ON LAC SALINE LOCKED. PT HAS R LIMB ALERT. PT IS UP WITH ASSIST X1 WITH WALKER TO BEDSIDE COMMODE. PT HAS ABDOMINAL BRACE. ELOISE FROM 5N INFORMED ME THAT THEY CANNOT ACCEPT PT TO [address] PIKE AND INFORMED HOSPITALIST AND CM. WILL CONTINUE TO MONITOR PT. FOLLOW POC.
--- NOTE | 2021-03-03 11:23 | NUR ---
ADMISSIONS LIAISON RECEIVED NOTIFICATION THAT PATIENT WAS READY TO READMIT TO 5N IF PATIENT WAS BEING ACCEPTED BACK FOR CONTINUED CARE. ADMISSIONS LIAISON SPOKE WITH DR. PIKE REGARDING PATIENT AND DR. PIKE DECLINED ADMITTING PATIENT BACK TO ACUTE REHAB DUE TO CONCERNS ABOUT PATIENT'S FRAIL CONDITION AND ACUTE REHAB BEING TO AGGRESSIVE FOR PATIENT TO TOLERATE. DR. PIKE'S RECOMMENDATION IS FOR PATIENT TO REMAIN ON ACUTE FOR A FEW MORE DAYS AND THEN DISCHARGE TO HOME OR IF PATIENT IS MEDICALLY READY TO DISCHARGE NOW, THEN PATIENT COULD GO TO A SKILLED FACILITY. ACUTE CARE NURSE AND NURSE INFORMED OF THE ABOVE.
--- NOTE | 2021-03-03 11:55 | NUR ---
WAS NOTIFIED BY PT'S NURSE THAT DR PIKE FEELS PATIENT IS TOO FRAGILE FOR REHAB THERAPY. SPOKE WITH PT'S DTR JOSE CARLOS AND SHE IS WANTING TO GET WITH THE DR'S ON FRIDAY TO SEE WHAT IS BEST FOR PT. ONE PERSON IS TELLING HER THAT SHE NEEDS A BRACE ANOTHER IS SAYING SHE DOES NOT NEED A BRACE. SO FRIDAY SHE WILL MEET WITH THE CONFERENCE ASSISTANT AND SEE WHAT HER OPTIONS ARE.
[2021-03-03 15:38] VITALS: BP 129/69
[2021-03-03 19:27] VITALS: BP 136/76
--- NOTE | 2021-03-03 23:31 | NUR ---
ASSESSMENT COMPLETED. PT HAVING SEVERAL BMS. REQUIRES SBA TO THE BSC. SHE CALLS APPROPRIATELY.AFEBRILE. GIVEN NORCO FOR THE BACK PAIN. SHE REPORTS POOR APPETITE TODAY WELL FEELING TIRED.NO FURTHER CONCERNS.
[2021-03-04 03:41] VITALS: BP 129/72
[2021-03-04 04:47] LABS: ABSOLUTE NEUTROPHILS 3.6 thou/uL (1.4-8.2); EOSINOPHILS 6.5 % (0.0-3.0); HEMATOCRIT 37.8 % (37.0-47.0); HEMOGLOBIN 12.7 gm/dL (12.0-15.0); LYMPHOCYTES 22.2 % (24.0-44.0); MCH 31.7 pg (26.0-34.0); MCHC 33.5 g/dL (28.0-37.0); MCV 94.7 fL (80.0-100.0); MONOCYTES 10.4 % (1.0-8.0); PLATELET COUNT 437 thou/uL (150-400); POLYS 59.9 % (36.0-66.0); RBC 3.99 mil/uL (4.20-5.00); RDW 12.6 % (10.5-14.5)
[2021-03-04 05:09] LABS: ALBUMIN 2.9 g/dL (3.4-5.0); CALCIUM 9.2 mg/dL (8.5-10.1); CREATININE 0.5 mg/dL (0.6-1.0); MAGNESIUM 1.6 mg/dL (1.8-2.4); PHOSPHORUS 3.4 mg/dL (2.5-4.9); POTASSIUM 3.7 mmol/L (3.5-5.1); TOTAL BILIRUBIN 0.6 mg/dL (0.2-1.0); TOTAL PROTEIN 6.9 g/dL (6.4-8.2)
[2021-03-04 07:49] VITALS: BP 143/78
--- NOTE | 2021-03-04 09:07 | NUR ---
ASSUMED PT CARE THIS AM. PT IS ALERT & ORIENTED X4. PT HAS IV SITE ON LAC SALINE LOCKED. PT IS UP WITH ASSIST X1 TO THE BEDSIDE COMMODE. PT HAS ABDOMINAL BINDER Q4H. PT IS ON ROOM AIR. PT RATED PAIN 1/10 ON THE LOWER BACK THIS AM. GIVEN MIRALAX THIS AM PER PT REQUEST. WILL CONTINUE TO MONITOR PT. FOLLOW POC.
[2021-03-04 15:31] VITALS: BP 133/70
[2021-03-04 19:38] VITALS: BP 124/65
--- NOTE | 2021-03-05 03:45 | NUR ---
RECEIVED CARE OF THIS PATIENT AT 1900. PATIENT ALERT AND ORIENTEDX4. UP BSC WITH WALKER AND ASSIST. C/O PIN IN BACK, PAIN MED GIVEN WITH SCHEDULED MUSCLE RELAXANT. SLEPT MOST OF NIGHT.
[2021-03-05 05:05] VITALS: BP 149/82
[2021-03-05 08:14] VITALS: BP 137/67
[2021-03-05 08:26] VITALS: BP 137/67
--- NOTE | 2021-03-05 08:30 | NUR ---
Chart review. Cm familiar with patient from acute rehab. cm consult for dcp. Report passed on from bedside nurse. Cm visited with patient about skilled reahb, she voiced [facility] would be only place she would consider going for rehab, referral sent to [facility]. they have beds and can accept, she is in her copay day $185.50/day.
--- NOTE | 2021-03-05 08:30 | NUR ---
chart review. spoke with bedside nurse. cm visited with rajesh at bedside. [facility] to [facility]. Active listen and support during visit. Will cont following as needed for dc needs.
[2021-03-05] MEDS ORDERED: PEPCID20 MG PO (15:03)
== END 2021-03-05 16:23 | DRG 516 ==
LOC: 4S 03:33
PROVIDERS: Internal Medicine; Nurse Practitioner; ADMIT Internal Medicine; ATTEND Internal Medicine
PROC: 0QU03JZ Supplement Lumbar Vertebra with Synthetic Substitute, Percutaneous Approach (ICD-10-PCS; principal; 2021-03-01)
PROC: 0QS03ZZ Reposition Lumbar Vertebra, Percutaneous Approach (ICD-10-PCS; principal; 2021-03-01)
DX: M48.56XA Collapsed vertebra, not elsewhere classified, lumbar region, initial encounter for fracture (principal); E44.0 Moderate protein-calorie malnutrition; I10 Essential (primary) hypertension; G62.9 Polyneuropathy, unspecified; N39.3 Stress incontinence (female) (male); M81.0 Age-related osteoporosis without current pathological fracture; M19.022 Primary osteoarthritis, left elbow; M19.021 Primary osteoarthritis, right elbow; M19.90 Unspecified osteoarthritis, unspecified site; M72.2 Plantar fascial fibromatosis; R53.81 Other malaise; K59.00 Constipation, unspecified; E83.42 Hypomagnesemia; K57.90 Diverticulosis of intestine, part unspecified, without perforation or abscess without bleeding; Z85.3 Personal history of malignant neoplasm of breast; Z88.8 Allergy status to other drugs, medicaments and biological substances; Z87.891 Personal history of nicotine dependence
CPT/HCPCS: 10102

== ENCOUNTER 2021-03-20 07:01 | Inpatient (IN) | payer OTHER ==
[~2021-03-20] VITALS: Ht 162.6 cm; Wt 41.7 kg
--- NOTE | ~2021-03-20 | EMS ---
[facility] [address] [place] [address] EMS Patient Care Report Name: RAMON RAMACHANDRAN Room #: REG MARANDA Camp#: [id number] Admission: 03/20/21 Attend Phys: Discharge: Date of : 41 Report #: [id number] THIS REPORT FOR: //name// Report Transmitted: 03/20/2021 06:45 EMS Care Summary [facility] MED-ACT Incident [id number] @ 03/20/2021 06:31 [address] [place] [address] Patient RAMON RAMACHANDRAN Female, 76 Years 1945 Patient Address [address] [place] [address] Patient History Asthma,Hypertension (HTN),Osteoporosis,Back Pain (Chronic), Patient Allergies Lyrica,Gabapentin, Patient Medications Methocarbamol, Cardizem, Hydrocodone, Prilosec, Vitamin D, Advair, Atenolol, Proair, Chief Complaint BACK PAIN Disposition Transported No Lights/[place]ard Dispatch Reason Back Pain (Non-Traumatic) Transported To [facility] Narrative Arrived to find pt lying in bed alert and oriented. Pt complained of mid [facility] [address] [place] [address] EMS Patient Care Report Name: RAMON RAMACHANDRAN Room #: REG Zoë#: [id number] Admission: 03/20/21 Attend Phys: Discharge: Date of : 41 Report #: [id number] thoracic back pain. Pt stated she has several compression fx in her lower back and she is concerned she has a new compression fx in her mid back. Pt stated she started having pain Friday afternoon and it has gotten progressively worse. Pt decline EMS fentanyl and stated she would rather self administer her prescribed hydrocodone. Pt was lifted to a stairchair and taken to the cot and placed in the position of comfort and rested without change en route to [facility]. Upon arrival pt was taken to 5 and care transferred to senior staff specialized employment with report. Initial Vitals @06:52P: 93,SpO2: 96, @06:57P: 82,R: 18,BP: 176/83,Pain: 6/10,GCS: 15,SpO2: 95,Revised Trauma: 12, @06:41P: 90,R: 18,BP: 174/90,Pain: 6/10,GCS: 15,Temp: 97.6F,SpO2: 97,Revised Trauma: 12, Impression Back Pain Timeline 06:28,Call Received 06:28,Psap Call 06:31,Dispatched 06:33,En Route 06:36,On Scene 06:38,At Patient 06:41,BP: 174/90 M,PULSE: 90,RR: 18 R,SPO2: 97 Ox,ETCO2: ,BG: ,PAIN: 6,GCS: 15, 06:49,Depart Scene 06:52,BP: / M,PULSE: 93,RR: R,SPO2: 96 Ox,ETCO2: ,BG: ,PAIN: ,GCS: , 06:57,BP: 176/83 M,PULSE: 82,RR: 18 R,SPO2: 95 Ox,ETCO2: ,BG: ,PAIN: 6,GCS: 15, 06:59,At Destination 07:14,Call Closed Disclaimer v1.1 Copyright 2020 [employer] This EMS Care Summary contains data elements from the applicable legal record (which may be displayed differently). It is designed to provide pertinent information for the following purposes: continuity of care, clinical quality, and state data reporting. The complete legal record is available to ED staff and administrators of the receiving hospital in [employer] Patient Tracker. All data is provided "as is."
[~2021-03-20 07:01] MED LIST changes: +PEPCID20 MG PO
[2021-03-20 07:06] VITALS: BP 169/85
[2021-03-20] MEDS ORDERED: OMEPRAZOLE40 MG PO (07:11)
[2021-03-20 11:29] LABS: ABSOLUTE NEUTROPHILS 4.8 thou/uL (1.4-8.2); BASOPHILS 1.5 % (0.0-2.0); EOSINOPHILS 4.4 % (0.0-3.0); HEMATOCRIT 39.4 % (37.0-47.0); HEMOGLOBIN 12.8 gm/dL (12.0-15.0); LYMPHOCYTES 15.4 % (24.0-44.0); MCH 31.2 pg (26.0-34.0); MCHC 32.6 g/dL (28.0-37.0); MCV 95.9 fL (80.0-100.0); MONOCYTES 8.4 % (1.0-8.0); PLATELET COUNT 348 thou/uL (150-400); POLYS 70.3 % (36.0-66.0); RBC 4.11 mil/uL (4.20-5.00); RDW 13.1 % (10.5-14.5); WBC 6.9 thou/uL (4.0-11.0)
[2021-03-20 11:35] LABS: CALCIUM 9.5 mg/dL (8.5-10.1); CREATININE 0.4 mg/dL (0.6-1.0); POTASSIUM 5.3 mmol/L (3.5-5.1)
[2021-03-20 11:41] LABS: ALBUMIN 2.9 g/dL (3.4-5.0); TOTAL BILIRUBIN 0.5 mg/dL (0.2-1.0); TOTAL PROTEIN 7.1 g/dL (6.4-8.2)
[2021-03-20 13:45] VITALS: BP 144/75
[2021-03-20 14:54] VITALS: BP 150/85
--- NOTE | 2021-03-20 14:58 | NUR ---
PT TRANSFERRING TO ROOM 4S-445. PT REPORTS SIGNIFICANT DECREASE IN BACK PAIN. VSS. REPORT CALLED TO 4S RN. RECEIVING NURSE DENIES QUESTIONS OR CONCERNS REGARDING POC.
[2021-03-20 16:24] VITALS: BP 135/78
--- NOTE | 2021-03-20 16:39 | NUR ---
ASSUME CARE OF PT AROUND 1600. ADMITTED SURGERY. PT WAS BROUGHT IN TO THE ER THIS MORNING DUE TO BACK PAIN AND COMPRESSION FX. PT WAS TAKEN TO SURGEY, AND HAD A T11 KYPHOPLASTY DONE. TWO BANDAIDS ON BACK NOTED. PT IS ALERT AND ORIENTED TIMES FOUR. VSS. PT C/O BACK PAIN PRN PAIN MEDICATIONS GIVEN WITH SOME RELEIF. WILL CONTINUE TO MONITOR.
[2021-03-20 19:20] VITALS: BP 145/88
--- NOTE | 2021-03-21 04:22 | NUR ---
RECEIVED CARE OF THIS PATIENT AT 1900. PATIENT ALERT AND ORIENTED X4. UP TO BSC WITH HELP. C/O PAIN IN BACK. MED GIVEN, SLEPT MOST OF NIGHT.
[2021-03-21 07:27] VITALS: BP 141/86
--- NOTE | 2021-03-21 12:15 | NUR ---
PT ALERT AND ORIENTED TIMES FOUR. VSS. PT C/O PAIN PRN PAIN MEDICATIONS GIVEN WITH SOME RELEIF. PT TOLERATES MEDS AND MEALS. WILL CONTINUIE TO MONITOR.
--- NOTE | 2021-03-21 13:40 | NUR ---
76-year-old female seen in er with intractable back pain and compression fracture. She is a patient of Dr. Guerrero, well-known to our practice. History is significant for hypertension, osteoarthritis, chronic plantar fasciitis, peripheral neuropathy, history of breast cancer, history of GI bleed, and chronic back pain. She had multiple kyphoplasty procedures, most recently in November kyphoplasty, December & Feb kyphoplasty, back pain began Friday morning. She recently dc from [facility], skilled were she was in co-pay days and paid private pay. She been to [facility] acute rehab in the past as well. HH in the past with [facility]. Chart review. cm visited with her at bedside, she did not want an introduction, she stated " i am glad to see you, i have a glass back and want to go back to [facility] , i know i am private pay per Eva. She is A & o x 3, pleasant and able to make her needs known. When she is not at the hospital or rehab she lives alone, manage her own medications and has 4ww Discussed during los with the attending physician, possible ready for dc . Referral sent to [facility].
[2021-03-21 15:45] VITALS: BP 124/78
[2021-03-21 19:46] VITALS: BP 146/87
--- NOTE | 2021-03-22 00:58 | NUR ---
ASSUMED PT CARE AT AROUND 1915 HRS. PT STILL C/O EXCRUCIATING BACK PAIN WHEN SHE MOVES A CERTAIN WAY, PT ALSO HAS INTERMITTENT SPASMS. PRN PAIN MEDS GIVEN. UP WITH ASSIT X 1 TO BSC. DENIES ANY ISSUES WITH BLADDER OR BOWELS. CALLS WITH NEEDS.
[2021-03-22 05:00] VITALS: BP 142/82
[2021-03-22 08:41] VITALS: BP 142/87
[2021-03-22 08:53] VITALS: BP 142/87
--- NOTE | 2021-03-22 10:15 | NUR ---
A/O X 4. ROOM AIR. ONE ASSIST WITH WALKER. LEFT AC IV SALINE LOCKED. CONT B/B. BACK PAIN 7/10 AND SPASMS IN BACK. NORCO AND FLEXIRIL GIVEN PRIOR TO SHIFT AND WILL BE GIVEN AGAIN. IS GIVEN TO PATIENT TO USE.
[2021-03-22] MEDS ORDERED: CARDIZEM CD120 MG PO (11:17)
[2021-03-22] MEDS ORDERED: CYCLOBENZAPRINE5 MG PO (11:17)
[2021-03-22] MEDS ORDERED: FENTANYL1 EACH TRANSDERM (11:17)
[2021-03-22] MEDS ORDERED: HYDROCODON-ACE1 EAC7 PO (11:18)
--- NOTE | 2021-03-22 11:41 | NUR ---
Dc today to [facility]. Chart copy requested. faxed dc order to [facility] # [phone]. Bedside nurse to call report. Wheel chair transport set up for 1300. Ana her sister called # [phone], left message requested a call back. Spoke with rajesh and she agrees with dcp and she is great full that she is getting to go back to [facility] today.
== END 2021-03-22 13:18 | DRG 515 ==
LOC: ER 07:01 → EROBS 11:38 → 4S 11:38
PROVIDERS: Emergency Medicine; ADMIT Hospitalist; ATTEND Hospitalist
DX: S22.080A Wedge compression fracture of T11-T12 vertebra, initial encounter for closed fracture (principal); E43 Unspecified severe protein-calorie malnutrition; Z68.1 Body mass index [BMI] 19.9 or less, adult; G62.9 Polyneuropathy, unspecified; Z20.822 Contact with and (suspected) exposure to COVID-19; M19.022 Primary osteoarthritis, left elbow; M19.021 Primary osteoarthritis, right elbow; M81.0 Age-related osteoporosis without current pathological fracture; I10 Essential (primary) hypertension; Z79.899 Other long term (current) drug therapy; Z85.3 Personal history of malignant neoplasm of breast; Z88.8 Allergy status to other drugs, medicaments and biological substances; Z87.891 Personal history of nicotine dependence
CPT/HCPCS: 10195